=== PATIENT | female | born 1985 | race Caucasian/White ===

== ENCOUNTER → 2020-03-02 15:44 | Outpatient (CLI) | payer BC, SELFPAY ==
--- NOTE | ~2020-03-02 | MM_ITS ---
EXAMINATION: MM screening gregorio BI w brandon HISTORY: Screening TECHNIQUE: Craniocaudal and mediolateral oblique 3-D tomosynthesis images were obtained and synthetic 2-D images were generated. CAD analysis was submitted and interpreted. COMPARISON: No prior mammogram is available for comparison at this institution. BREAST PARENCHYMAL COMPOSITION: The breasts are heterogeneously dense, which may obscure small masses . FINDINGS: There are focal asymmetries in the upper outer quadrant of the right breast. The left breas t is stable without evidence for malignancy. IMPRESSION: 1. Focal asymmetry upper outer quadrant of the right breast 2. Additional mammographic views and possible breast ultrasound are recommended. BI-RADS Category 0: Incomplete: Needs additional imaging evaluation. Reviewed, dictated and finalized at location A. IMPRESSION: 1. Focal asymmetry upper outer quadrant of the right breast 2. Additional mammographic views and possible breast ultrasound are recommended . BI-RADS Category 0: Incomplete: Needs additional imaging evaluation.
== END ==
PROVIDERS: PCP Family Medicine; Visit Provider Family Medicine
DX: Z12.31 Encounter for screening mammogram for malignant neoplasm of breast (principal)
CPT/HCPCS: 77063; 77067

== ENCOUNTER → 2020-03-18 09:20 | Outpatient (CLI) | payer BC, SELFPAY ==
--- NOTE | ~2020-03-18 | MMUS_ITS ---
EXAMINATION: MM diagnostic mammo unilat RT, US breast RT limited HISTORY: Right breast asymmetry on baseline screening mammogram TECHNIQUE: Additional 3-D tomosynthesis images of the right breast were performed and synthetic 2-D i mages were generated. CAD analysis was submitted and interpreted. High resolution limited right breas t ultrasound was performed. COMPARISON: 03/02/2020 FINDINGS: MAMMOGRAPHIC FINDINGS: An asymmetry in the upper outer quadrant of the middle third of the breast persists on some spot comp ression views and not on others. No definite architectural distortion or suspicious calcification are identified. ULTRASOUND: There is a 1.2 x 0.5 cm complex cystic and solid, parallel, circumscribed mass at the 10:00 location 5 cm from the nipple with no posterior features or internal vascularity, likely reflecting a complica christie cyst. A 6 mm x 2 mm oval, circumscribed, parallel, hypoechoic mass with no posterior features or internal vascularity is present at the 9:00 location 4.5 cm from the nipple. IMPRESSION: 1. Probably benign right breast findings. 2. Recommend 6 month follow-up right diagnostic mammogram and ultrasound. BI-RADS category 3, probably benign findings. Reviewed, dictated and finalized at location A. IMPRESSION: 1. Probably benign right breast findings. 2. Recommend 6 month follow-up right diagnostic mammogram and ultrasound. BI-RADS category 3, probably benign findings.
== END ==
PROVIDERS: Visit Provider Family Medicine
DX: R92.8 Other abnormal and inconclusive findings on diagnostic imaging of breast (principal)
CPT/HCPCS: 76642; 77065

== ENCOUNTER → 2020-10-26 14:29 | Outpatient (CLI) | payer BC, SELFPAY ==
--- NOTE | ~2020-10-26 | MMUS_ITS ---
EXAMINATION: MM diagnostic gregorio RT w brandon, US breast RT complete HISTORY: 6 month follow up TECHNIQUE: Full field and spot ML, MLO, CC 3-D tomosynthesis images of right breast were performed an d synthetic 2-D images were generated. CAD analysis was submitted and interpreted. High resolution co mplete right breast ultrasound was performed. COMPARISON: 03/10/2020 diagnostic right mammogram and limited right breast ultrasound 03/02/2020 bilateral digital screening mammogram BREAST PARENCHYMAL COMPOSITION: The breasts are heterogeneously dense, which may obscure small masses . FINDINGS: MAMMOGRAPHIC FINDINGS: An approximately 11 mm mass is suggested in the inner mid right breast. Heterogeneously dense stroma may obscure additional masses. ULTRASOUND: 3:00 subareolar area: Approximately 6 x 10 mm circumscribed hypoechoic solid lesion with minimal inte rnal vascularity without suspicious shadowing. The sonographic features suggest benign fibroadenoma. Consider ultrasound-guided biopsy for definitive diagnosis. 8:00 4.5 cm from nipple: 3 x 8.4 mm sonolucency with through transmission and posterior enhancement, consistent with simple cyst. 10:00 5 cm from nipple: Stable septated 4.3 x 12 mm cyst with through transmission and posterior enha ncement 10:00 8 cm from nipple: 4 x 8 mm intramammary benign-appearing lymph node. IMPRESSION: 6 x 10 mm circumscribed hypoechoic solid lesion at 3:00 position; this may be a fibroadenoma. Conside r ultrasound-guided biopsy for definitive diagnosis, or alternatively six-month targeted ultrasound f ollow-up for 2 years to document stability BI-RADS Category 4A; consider biopsy. Alternatively, consider follow-up targeted ultrasound at 6 cynthia h intervals to document stability for 2 years Reviewed, dictated and finalized at location A. IMPRESSION: 6 x 10 mm circumscribed hypoechoic solid lesion at 3:00 position; this may be a fibroadenoma. Consider ultrasound-guided biopsy for definitive diagnosis, or a lternatively six-month targeted ultrasound follow-up for [address] ability BI-RADS Category 4A; consider biopsy. Alternatively, consider follow-up targete d ultrasound at 6 month intervals to document stability for 2 years
== END ==
PROVIDERS: PCP Family Medicine; Visit Provider Family Medicine
DX: R92.8 Other abnormal and inconclusive findings on diagnostic imaging of breast (principal)
CPT/HCPCS: 76641; 77061; 77065; G0279

== ENCOUNTER 2020-11-03 10:39 | Outpatient (CLI) | payer BC, SELFPAY ==
--- NOTE | ~2020-11-03 | MMUS_ITS ---
EXAMINATION: US breast biopsy RT w image, MM post biopsy invasive RT DATE: 11/03/2020 11:40 (accession [id number]), 11/03/2020 11:56 (accession [id number]) INDICATION: Indeterminate mass at the 3:00 location of the right breast Ultrasound-guided core biopsy is requested to evaluate for malignancy. TECHNIQUE AND FINDINGS: The risks and potential benefits of the procedure were discussed with the patient including bleeding and infection. A time out was performed. The skin of the right breast was prepared and draped in usua l sterile fashion. 1% lidocaine was used for superficial anesthesia. 1% lidocaine with epinephrine wa s used for deep anesthesia. A vacuum-assisted biopsy gun needle was advanced through to the outer edge of the region of interest from an inferior approach utilizing sonographic guidance. A total of three tissue core samples were o btained through the lesion. A tissue marker clip was then placed at the biopsy site. Hemostasis was a chieved. A sterile bandage was applied. The patient tolerated procedure well and there was no evidence of immediate complication. The patient was given verbal instructions to return to the Emergency Department in the event of severe breast pa in or rapid breast enlargement. A two view right breast mammogram was obtained to document tissue mar ker clip placement. IMPRESSION: 1. Successful ultrasound-guided vacuum-assisted biopsy of right breast mass with tissue marker placem ent. Reviewed, dictated and finalized at location A. IMPRESSION: 1. Successful ultrasound-guided vacuum-assisted biopsy of right breast mass wit h tissue marker placement.
== END 2020-11-03 10:40 | disposition home or self-care (01) ==
PROVIDERS: PCP Family Medicine; Visit Provider Family Medicine
DX: D24.1 Benign neoplasm of right breast (principal)
CPT/HCPCS: 19083; 88305; A4648

== ENCOUNTER → 2022-07-07 15:54 | Outpatient (CLI) | payer BC, SELFPAY ==
--- NOTE | ~2022-07-07 | MM_ITS ---
EXAMINATION: MM screening gregorio BI w brandon HISTORY: Screening mammogram TECHNIQUE: Craniocaudal and mediolateral oblique 3-D tomosynthesis images were obtained and synthetic 2-D images were generated. CAD analysis was submitted and interpreted. COMPARISON: 11/03/2020 right ultrasound breast biopsy 10/26/2020 diagnostic right mammogram and complete right breast ultrasound 03/10/2020 diagnostic right mammogram and limited right breast ultrasound 03/02/2020 bilateral screening mammogram BREAST PARENCHYMAL COMPOSITION: The breasts are heterogeneously dense, which may obscure small masses . FINDINGS: Right-sided biopsy marker; history of prior benign right breast biopsy. There is no evidenc e of suspicious mass, calcification, or architectural distortion to suggest malignancy in either nat st. There has been no suspicious interval change. IMPRESSION: 1. No mammographic evidence of malignancy. 2. Recommend routine screening mammography in one year. BI-RADS Category 1: Negative Reviewed, dictated and finalized at location A. 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
== END ==
PROVIDERS: PCP Family Medicine; Visit Provider Family Medicine
DX: Z12.31 Encounter for screening mammogram for malignant neoplasm of breast (principal)
CPT/HCPCS: 77063; 77067

== ENCOUNTER 2022-11-02 19:43 | Emergency (ER) | payer BC, SELFPAY ==
--- NOTE | ~2022-11-02 | US_ITS ---
EXAMINATION: US transvaginal DATE: 11/02/2022 22:58 INDICATION: Left pelvic pain. TECHNIQUE: Multiple transvaginal sonographic images of the pelvis were obtained. COMPARISON: None. FINDINGS: The uterus measures 9.1 x 6.0 x 6.7 cm. There is no free fluid in the pelvis. The endometrial complex measures 5 mm in thickness. There is a nabothian cysts in the cervix. There is a 5.0 cm intramural f ibroid. The right ovary measures 3.0 x 1.4 x 2.4 cm. The left ovary measures 2.1 x 3.2 x 1.9 cm. Ther e is normal vascular flow in the ovaries. IMPRESSION: 1. Uterine fibroid. 2. Normal ovaries. Reviewed, dictated and finalized at location A.
[2022-11-02 19:49] VITALS: BP 180/96; PULSE 103; RESP 20; TEMP 36.3; O2SAT 100
[2022-11-02 22:21] LABS: Basophils Percent Auto 0.5 % (0.2-1.2); Eosinophils Percent Auto 0.2 % (0-4.4); Hematocrit 40.6 % (37.0-47.0); Hemoglobin 13.7 g/dL (12.0-15.0); Immature Granulocyte Absolute 0.02 K/mm3 (0.00-0.031); Immature Granulocyte Percent A 0.2 % (0-0.5); Lymphocytes Absolute Auto 2.35 K/mm3 (0.9-3.2); Lymphocytes Percent Auto 27.4 % (18.3-44.2); Mean Corpuscular HGB Conc 33.7 g/dl (32-36); Mean Corpuscular Hemoglobin 29.6 pg (26-34); Mean Corpuscular Volume 87.7 fl (80-100); Mean Platelet Volume 9.2 fl (7.4-10.4); Monocytes Absolute Auto 0.5 K/mm3 (0.1-0.6); Monocytes Percent Auto 5.9 % (2.6-8.5); Neutrophils Absolute Auto 5.6 K/mm3 (1.3-6.7); Neutrophils Percent Auto 65.8 % (45.5-73.1); Platelet Count Result 352 k/mm3 (150-375); Red Blood Count 4.63 M/mm3 (4.2-5.4); Red Cell Distribution Width 13.2 % (11.5-14.5); White Blood Count 8.6 K/mm3 (4.5-10.0)
--- NOTE | 2022-11-02 22:21 | ED.ABDPAIN ---
HPI - Abdominal Pain General Chief Complaint: Abdominal Pain Stated Complaint: left pelvic pain x 1 hour - on IVF therapy Time Seen by Provider: 11/02/22 21:46 History of Present Illness HPI narrative: Patient is a G0 37-year-old female here for evaluation of left sided pelvic pain x1 day. She states the pain is intermittent in nature, coming in waves, but when it is there it is severe. She has not had any medicine for her pain. Patient is currently undergoing IVF and has received 3 out of 6 treatments. She denies any nausea, vomiting, diarrhea, constipation, vaginal discharge, vaginal bleeding. Related Data Allergies Allergy/AdvReac Type Severity Reaction Status Date / Time levofloxacin [From Levaquin] Allergy Other Verified 11/02/22 19:52 Review of Systems Review of Systems: Gen: Denies fevers or chills Eyes: Denies eye pain or visual change ENT: Denies congestion Respiratory: Denies shortness of breath or cough CV: Denies chest pain or palpitations GI: Reports abdominal pain : denies burning, urgency, frequency or hematuria Musculoskeletal: Denies back pain or muscle pain Neuro: Denies numbness, tingling, weakness or focal weakness Skin: Denies rash Except as documented, all other systems reviewed and negative Exam Narrative: APPEARANCE: Well appearing, no pain in distress, well-nourished. Head: Normocephalic and atraumatic. EYES: PERRLA/EOMI, conjunctivae clear NOSE: No nasal drainage EARS: External ear normal in appearance THROAT: Oropharynx is clear. Mucous membranes are moist. NECK: Supple. No adenopathy, no masses. RESPIRATORY: Airway patent, respirations nonlabored. Clear to auscultation bilaterally, no rales, rhonchi, wheezing. CARDIOVASCULAR: Regular rate and rhythm without murmurs, rubs, or gallops. ABDOMINAL: Normoactive bowel sounds. Soft, nontender, nondistended. No rebound tenderness or guarding. MUSCULOSKELETAL: Extremities are warm and well-perfused. Moves all extremities well. No edema. NEURO: Normal speech. No focal neurologic deficits. SKIN: Skin is warm and dry. No rashes. PSYCHIATRIC: Normal affect/mood.. Course Vital Signs Vital signs: Vital Signs Temperature 97.3 F L 11/02/22 19:49 Pulse Rate 103 H 11/02/22 19:49 Respiratory Rate 20 11/02/22 19:49 Blood Pressure 180/96 H 11/02/22 19:49 Pulse Oximetry 100 11/02/22 19:49 Oxygen Delivery Room Air 11/02/22 19:49 Temperature 97.8 F 11/03/22 00:51 Pulse Rate 80 11/03/22 00:51 Respiratory Rate 15 11/03/22 00:51 Blood Pressure 137/99 H 11/03/22 00:51 Pulse Oximetry 100 11/03/22 00:51 Oxygen Delivery Room Air 11/02/22 19:49 MDM - Abdominal Pain MDM Narrative Medical decision making narrative: 37-year-old female here for evaluation of intermittent left pelvic pain x1 day. Patient is nontoxic in appearance and has normal vital signs, no abdominal tenderness on exam. Pelvic ultrasound reveals leiomyomatous uterus but no evidence of ovarian torsion. She was aware of the above findings. Her basic labs and urinalysis unremarkable. Patient declines pain meds in the ED. 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 We discussed return precautions and she voiced understanding. Lab Data 11/02/22 22:15 11/02/22 22:15 Labs: Lab Results 11/02/22 11/02/22 Range/Units 22:15 22:37 WBC 8.6 (4.5-10.0) K/mm3 RBC 4.63 (4.2-5.4) M/mm3 Hgb 13.7 (12.0-15.0) g/dL Hct 40.6 (37.0-47.0) % MCV 87.7 (80-100) fl MCH 29.6 (26-34) pg MCHC 33.7 (32-36) g/dl RDW 13.2 (11.5-14.5) % Plt Count 352 (150-375) k/mm3 MPV 9.2 (7.4-10.4) fl Immature Gran % (Auto) 0.2 (0-0.5) % Neut % (Auto) 65.8 (45.5-73.1) % Lymph % (Auto) 27.4 (18.3-44.2) % [place] % (Auto) 5.9 (2.6-8.5) % Eos % (Auto) 0.2 (0-4.4) % Baso % (Auto) 0.5 (0.2-1.2) % Lymph # (Auto) 2.35 (0.9-3.2) K/mm3 [place] # (Auto) 0.5 (0.1-0.6) K/mm3 Eos # (Auto) 0
[2022-11-02 22:32] LABS: Alanine Aminotransferase 22 U/L (6-35); Alkaline Phosphatase 61 U/L (38-126); Anion Gap 4 mmol/L (8-16); Aspartate Amino Transferase 23 U/L (14-36); Bilirubin,Total 0.2 mg/dL (0.2-1.3); Blood Urea Nitrogen 9 mg/dL (7-17); Carbon Dioxide 31 mmol/L (22-30); Chloride 105 mmol/L (98-107); Estimated CRCL calculation 74 ml/min; Estimated Glomerular Filt Rate > 60; Glucose 89 mg/dL (65-110); Lipase 32 U/L (23-300); Potassium 4.1 mmol/L (3.4-5.0); Sodium 140 mmol/L (137-145)
[2022-11-02 22:45] LABS: Appearance Urine Clear (Clear); Bilirubin Urine Negative (Negative); Blood Urine Negative (Negative); Color Urine Yellow (Yellow); Glucose Urine UA Negative (Negative); Ketones Urine Negative (Negative); Leukocyte Esterase Ur Negative LEU/UL (Negative); Nitrate Urine Negative (Negative); Protein Urine Negative (Negative); Specific Grav Ur 1.007 (1.001-1.035); Urobilinogen Urine 0.2 mg/dL (<2.0)
[2022-11-02 22:48] LABS: Beta HCG Quantitative < 2.39 mIU/ML
[2022-11-02 22:53] LABS: Add Urine Microscopic? NO
[2022-11-02 23:12] VITALS: BP 136/99; PULSE 79; RESP 14; TEMP 36.6; O2SAT 99
[2022-11-03 00:51] VITALS: BP 137/99; PULSE 80; RESP 15; TEMP 36.6; O2SAT 100
== END 2022-11-03 00:52 | disposition home or self-care (01) ==
PROVIDERS: Emergency Provider Physician Assistant; PCP Family Medicine
DX: R10.2 Pelvic and perineal pain (principal); D25.9 Leiomyoma of uterus, unspecified
CPT/HCPCS: 36415; 76830; 80053; 81003; 83690; 84702; 85025; 99284

== ENCOUNTER 2023-10-05 10:29 | Outpatient (CLI) | payer OTHER, SELFPAY ==
--- NOTE | ~2023-10-05 | MM_ITS ---
EXAMINATION: MM screening gregorio BI w brandon HISTORY: Screening mammogram TECHNIQUE: Craniocaudal and mediolateral oblique 3-D tomosynthesis images were obtained and synthetic 2-D images were generated. CAD analysis was submitted and interpreted. COMPARISON: April 06, 2023 bilateral screening mammogram 11/03/2020 right ultrasound-guided breast biopsy; fibroadenoma diagnosis, 3:00 10/26/2020 diagnostic right mammogram and incomplete right breast ultrasound examination 03/02/2020 bilateral screening mammogram BREAST PARENCHYMAL COMPOSITION: The breasts are heterogeneously dense, which may obscure small masses . FINDINGS: There is a biopsy marker on the right and a circumscribed approximately 4.4 x 9.4 mm circum scribed mass; history of prior benign right breast biopsy (fibroadenoma). There is no evidence of petros picious mass, calcification, or architectural distortion to suggest malignancy in either breast. Ther e has been no suspicious interval change. IMPRESSION: 1. No mammographic evidence of malignancy. 2. Recommend routine screening mammography in one year. BI-RADS Category 2: Benign finding(s). Reviewed, dictated and finalized at location B.
== END 2023-10-05 10:30 | disposition home or self-care (01) ==
LOC: ANHIMG 10:31
PROVIDERS: PCP Family Medicine; Visit Provider Nurse Practitioner Family
DX: Z12.31 Encounter for screening mammogram for malignant neoplasm of breast (principal)
CPT/HCPCS: 77063; 77067

== ENCOUNTER 2023-10-17 13:12 | Emergency (ER) | payer OTHER, SELFPAY ==
--- NOTE | ~2023-10-17 | XR_ITS ---
EXAMINATION: XR chest 2V DATE: 10/17/2023 13:59 INDICATION: Chest pain. Shortness of breath. TECHNIQUE: Frontal and lateral views of the chest were obtained. COMPARISON: None. FINDINGS: There is no pneumonia, pleural effusion, or pneumothorax. The heart size is normal. IMPRESSION: 1. No acute cardiopulmonary disease. Reviewed, dictated and finalized at location A.
--- NOTE | 2023-10-17 13:13 | ECG_ITS ---
SEE SCANNED COPY FOR CONFIRMED REPORT MTDD
[2023-10-17 13:19] VITALS: BP 137/91; PULSE 100; RESP 20; TEMP 36.1; O2SAT 98
[2023-10-17 13:36] VITALS: O2SAT 99
[2023-10-17 13:39] VITALS: BP 139/96; PULSE 90; PULSE 91; RESP 10; O2SAT 100
[2023-10-17] MEDS: ASPIRIN 81 MG CHEWABLE TABLET 324 MG PO (13:43)
--- NOTE | 2023-10-17 13:44 | PC.NURSE ---
Pt states 3 weeks ago she had laparoscopic surgery for her endometriosis and stated they removed 5 fibroids from her uterus
[2023-10-17 13:45] LABS: Basophils Percent Auto 0.6 % (0.2-1.2); Eosinophils Absolute Auto 0.2 K/mm3 (0-0.3); Eosinophils Percent Auto 2.7 % (0-4.4); Hematocrit 44.5 % (37.0-47.0); Hemoglobin 14.9 g/dL (12.0-15.0); Immature Granulocyte Absolute 0.02 K/mm3 (0.00-0.031); Immature Granulocyte Percent A 0.3 % (0-0.5); Lymphocytes Absolute Auto 2.21 K/mm3 (0.9-3.2); Lymphocytes Percent Auto 32.7 % (18.3-44.2); Mean Corpuscular HGB Conc 33.5 g/dl (32-36); Mean Corpuscular Hemoglobin 29.3 pg (26-34); Mean Corpuscular Volume 87.4 fl (80-100); Mean Platelet Volume 9.1 fl (7.4-10.4); Monocytes Absolute Auto 0.4 K/mm3 (0.1-0.6); Monocytes Percent Auto 6.2 % (2.6-8.5); Neutrophils Absolute Auto 3.9 K/mm3 (1.3-6.7); Neutrophils Percent Auto 57.5 % (45.5-73.1); Platelet Count Result 408 k/mm3 (150-375); Red Blood Count 5.09 M/mm3 (4.2-5.4); Red Cell Distribution Width 12.9 % (11.5-14.5); White Blood Count 6.8 K/mm3 (4.5-10.0)
[2023-10-17 13:58] LABS: Alanine Aminotransferase 18 U/L (6-35); Albumin Level 4.6 g/dL (3.5-5.1); Alkaline Phosphatase 94 U/L (38-126); Anion Gap 5 mmol/L (4-12); Aspartate Amino Transferase 22 U/L (14-36); Bilirubin,Total 0.8 mg/dL (0.2-1.3); Blood Urea Nitrogen 11 mg/dL (7-17); Calcium 9.2 mg/dL (8.4-10.2); Carbon Dioxide 26 mmol/L (22-30); Chloride 106 mmol/L (98-107); Estimated CRCL calculation 70 ml/min; Estimated Glomerular Filt Rate > 60; Glucose 94 mg/dL (65-110); Lipase 46 U/L (23-300); Sodium 137 mmol/L (137-145)
[2023-10-17 14:00] LABS: INR 0.9; Prothrombin Time 13.1 Seconds (11.1-14.7)
[2023-10-17 14:01] LABS: Partial Thromboplastin Time 29.1 Seconds (22.3-36.8)
[2023-10-17 14:09] LABS: Troponin I < 0.012 ng/mL (0.000-0.034)
--- NOTE | 2023-10-17 14:11 | ED.CHESTPAIN ---
HPI - Chest Pain General Chief Complaint: Chest Pain Stated Complaint: chest pain Time Seen by Provider: 10/17/23 13:53 Source: patient Mode of arrival: ambulatory Limitations: no limitations History of Present Illness HPI narrative: This is a 38-year-old female who presents to the ED with chief complaint of chest pain beginning in the shower this morning. Reports it is in the left side of the chest radiating to the left shoulder and left neck. Reports she has chronic shoulder pain and shoulder laxity so deals with pain in this area a lot. The pain is worse with palpation and certain movements. She reports that it was hurting a little bit more towards the neck which was worrisome to her. States that she just wants to make sure it is not her heart. Did not take any medications prior to arrival. Denies nausea, vomiting, syncope, shortness of breath, leg swelling, palpitations, numbness, weakness, history of blood clot or recent hospitalization Related Data Allergies Allergy/AdvReac Type Severity Reaction Status Date / Time levofloxacin [From Levaquin] Allergy Other Verified 10/17/23 13:40 Review of Systems Review of Systems: All systems as dictated in HPI Exam Narrative: GENERAL: Well-appearing, well-nourished, and in no acute distress. HEAD: Normocephalic, atraumatic. EYES: PERRLA and EOMI. ENT: Nares clear, no rhinorrhea or epistaxis. Mucous membranes moist. Oropharynx without tonsillar hypertrophy exudate or other lesions. NECK: Supple. No adenopathy or masses. CHEST: No respiratory distress. Clear to auscultation. No wheezes rales or rhonchi. Mild tenderness to the left chest wall. HEART: Regular rate and rhythm. No murmur heard. Normal peripheral pulses. ABDOMEN: Soft, nontender, nondistended, normal active bowel sounds. MSK: Normal range of motion. No edema. SKIN: Warm, dry, no rash. NEURO: Alert and oriented x3. No focal deficits. PSYCH: Normal mood and affect. Course Vital Signs Vital signs: Vital Signs Temperature 97 F L 10/17/23 13:19 Pulse Rate 100 10/17/23 13:19 Respiratory Rate 20 10/17/23 13:19 Blood Pressure 137/91 H 10/17/23 13:19 Pulse Oximetry 98 10/17/23 13:19 Oxygen Delivery Room Air 10/17/23 13:19 Temperature 97 F L 10/17/23 13:19 Pulse Rate 90 10/17/23 14:40 Respiratory Rate 20 10/17/23 14:40 Blood Pressure 128/81 10/17/23 14:40 Pulse Oximetry 100 10/17/23 14:40 Oxygen Delivery Room Air 10/17/23 13:36 MDM - Chest Pain MDM Narrative Medical decision making narrative: This is a 38-year-old female who presents to the ED with chief complaint of left chest and left shoulder pain beginning in the shower this morning. Vitals are normal. EKG shows normal sinus rhythm. Exam shows reproducible musculoskeletal tenderness and pain with range of motion of the left chest wall and shoulder. Lab work is grossly unremarkable. Troponin is normal. Heart score 0. PERC rule negative for PE. Chest x-ray is normal. Symptoms and presentation most likely consistent with musculoskeletal pain. Pt will be discharged in stable condition. Return precautions given and supportive measures discussed. Pt is understanding and agreeable with plan for discharge and follow-up with PCP. PERC Rule for Pulmonary Embolism from [email or web address] on 10/17/2023 All calculations should be rechecked by clinician prior to use RESULT SUMMARY: 0 criteria No need for further workup, as <2% chance of PE. If no criteria are positive and clinician?s pre-test probability is <15%, PERC Rule criteria are satisfied. INPUTS: Age >=0 ?> 0 = No HR >=00 ?> 0 = No O? sat on room air ?> 0 = No Unilateral leg swelling ?> 0 = No Hemoptysis ?> 0 = No Recent surgery or trauma ?> 0 = No Prior PE or DVT ?> 0 = No Hormone use ?> 0 = No Lab Data 10/17/23 13:35 10/17/23 13:35 Labs: Lab Results 10/17/23 Range/Units 13:35 WBC 6.8 (4.5-10.0) K/mm3
[2023-10-17 14:40] VITALS: BP 128/81; PULSE 90; RESP 20; O2SAT 100
== END 2023-10-17 14:41 | disposition home or self-care (01) ==
PROVIDERS: Emergency Medicine; Emergency Provider Physician Assistant; PCP Family Medicine
DX: R07.89 Other chest pain (principal); R94.31 Abnormal electrocardiogram [ECG] [EKG]
CPT/HCPCS: 36415; 71046; 80053; 83690; 84484; 85025; 85610; 85730; 93005; 99284; A9270

== ENCOUNTER 2024-08-08 12:46 | Outpatient (CLI) | payer OTHER, SELFPAY ==
--- NOTE | ~2024-08-08 | US_ITS ---
EXAMINATION: US thyroid DATE: 08/08/2024 13:21 INDICATION: Hypothyroidism TECHNIQUE: Multiple ultrasound images of the thyroid were obtained. COMPARISON: None. FINDINGS: The right thyroid lobe measures 5.9 x 2.2 x 1.8 cm. The left thyroid lobe measures 5.4 x 1.7 x 1.9 c m. There are multiple nodules throughout the thyroid. The largest include a 1.9 cm solid very hypoec hoic wider than tall nodule with smooth margins and without echogenic foci the thyroid isthmus (TI-RA DS 4, moderately suspicious , FNA if >=1.5 cm, annual followup is >=1 cm); 1.48 cm TI-RADS 4 right th yroid nodule with identical imaging features, a second 1.46 cm TI-RADS 4 right thyroid nodule identic al which appears heterogeneously hypoechoic but with otherwise minimal imaging features and a couple 9 mm and 8 mm TI-RADS 4 nodules in the left thyroid lobe with smooth to ill-defined margins but with otherwise similar imaging features. IMPRESSION: 1. Multiple TI-RADS 4 nodules in both the left right thyroid lobes at the thyroid isthmus. Would paulette mmend ultrasound-guided biopsy of the largest 1.8 cm nodule at the thyroid isthmus with continued matty ual ultrasound follow-up of the remaining <1.5 cm nodules. Reviewed, dictated and finalized at location A. IMPRESSION: 1. Multiple TI-RADS 4 nodules in both the left right thyroid lobes at the thyro id isthmus. Would recommend ultrasound-guided biopsy of the largest 1.8 cm nodu le at the thyroid isthmus with continued annual ultrasound follow-up of the rem aining <1.5 cm nodules.
== END 2024-08-08 12:47 | disposition home or self-care (01) ==
LOC: MICIMG 12:48
PROVIDERS: PCP Family Medicine; Visit Provider Nurse Practitioner Family
DX: E04.2 Nontoxic multinodular goiter (principal); E03.9 Hypothyroidism, unspecified
CPT/HCPCS: 76536

== ENCOUNTER 2024-09-13 12:32 | Outpatient (CLI) | payer OTHER, SELFPAY ==
--- NOTE | ~2024-09-13 | US_ITS ---
EXAMINATION: US FNA w image guidance DATE: 09/13/2024 13:24 INDICATION: Nontoxic single thyroid nodule TECHNIQUE: A time-out was performed to verify the patient's name, date of , and procedure to be performed . The procedure and its benefits and risks were discussed with the patient. Risks specifically discus sed included bleeding and infection. The patient understood the risks and agreed to proceed. The neck was prepped and draped in the usual sterile manner. 7 mL 1% lidocaine was used for local anesthesia . 5 passes were made with a 25G needle into the lesion. Appropriate needle location was documented with continuous sonographic guidance. A sterile bandage was applied. There were no immediate compli cations. FINDINGS: Grayscale ultrasound images demonstrate biopsy needles advanced into a 1.7 cm hypoechoic nodule at th e thyroid isthmus. IMPRESSION: 1. Successful ultrasound-guided fine needle aspiration of a 1.7 cm hypoechoic nodule at the thyroid isthmus. Reviewed, dictated and finalized at location A.
--- OUTSIDE RECORDS SUMMARY | 2024-09-13 12:38 | XMS_ITS | Encounter Summary ---
[facility] Address 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
--- OUTSIDE RECORDS SUMMARY | 2024-09-13 12:38 | XMS_ITS | Clinical Summary ---
Author Organization [facility] Address [address] 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 This disclosure is being madepursuant to the Care Everywhere program and may not contain all information available regarding this patient. Last updated 18.[facility] [employer] Social History Tobacco Use Types Packs/Day Years Used Date Smoking Tobacco: Never Assessed Comments Unknown Sex and Gender Information Value Date Recorded Sex Assigned at Not on file Legal Sex Female 9:53 AM CDT Gender Identity Not on file Sexual Orientation Not on file Plan of Treatment Health Maintenance Due Date Last Done Comments LIPID TESTING 1983 MAMMOGRAM 1983 PAP SMEAR 1983 HIV SCREENING 1998 HEPATITIS C SCREENING 01/11/2001 DTAP/TDAP/TD VACCINES (1 - Tdap) 2002 HEPATITIS B VACCINE (1 of 3 - 19+ 3-dose series) 2002 COVID-19 VACCINE ( - season) 2024 10/27/2020, 10/06/2020 DEPRESSION SCREENING 05/22/2024 INFLUENZA VACCINE (Season Ended) 2025 04/05/2022, 04/21/2021, 03/13/2020, Additional history exists ZOSTER VACCINE (1 of 2) 2033 HIB VACCINE Aged Out No longer eligi ble based on patient's age to complete this topic HPV VACCINE Aged Out No longer eligi ble based on patient's age to complete this topic MENINGOCOCCAL (Group B) VACCINE SHARED DECISION-MAKING Aged Out No longer eligible based on patient's age to complete this topic MENINGOCOCCAL GROUPS A/C/Y/W VACCINE Aged Out No longer eligible based on patient's age to complete this topic PNEUMOCOCCAL VACCINE Aged Out No long er eligible based on patient's age to complete this topic Insurance
--- OUTSIDE RECORDS SUMMARY | 2024-09-13 12:38 | XMS_ITS | Data Portability ---
Author Organization [facility] [employer] , [facility] Address [address] [place] [address] Assessment No assessment recorded. Plan of Treatment Reminders Order Date Submit Date Provider Last Modified By Organization Details Last Modified Time Details Appointments None recorded. Lab HPV E6+E7 mRNA, qualitative PCR, cervix 2023 [facility] Carlo, [address] [place], [address], 4 16:06:09 pap, LB 2023 024 [facility], [address] [facility], [place], [address], 10:54:15 Referral None recorded. Procedures None recorded. Surgeries None recorded. Imaging MAMMO, screening, digital, bilateral 2023 024 [email or web address] Not available 16:03:13 Medication Orders None recorded. Patient TargetsNo targets recorded. Patient Instructions Encounter Date Encounter Id Patient Instructions Last Modified By Organization Details Last Modified Time 02/01/2023 [id number] Patient Health Questionnaire-9* [email or web address] Not available 02/06/2023 16:27:27 A healthy lifestyle: care instructions Not available 02/01/2023 17:51:21 substance use disorder: care instructions Not available 02/01/2023 17:51:21 tobacco cessation Not availab le 02/01/2023 17:51:21 Following the [employer] Food Guide: Care Instructions Not available 02/01/2023 17:51:21 exercise program : getting started Not available 02/01/2023 17:51:21 04/08/2024 [id number] body mass index: care instructions Not available 04/08/2024 12:15:15 mammogram: about this test Not available 04/08/2024 12:15:15 Reason for Referral None Reported. Results Created Date Observation Date Name Description Value Unit Range Abnormal Flag Note LastModifiedBy Organization Detail LastModifiedTime 04/15/2004/15/2024 THINP REP TIS PAP clinical information: normal None given Not Available [address], [address], 04/15/2024 10:54:15 04/15/2004/15/2024 THINP REP TIS PAP LMP: normal NONE GIVEN Not Available [address], [address], 04/15/2024 10:54:15 04/15/2004/15/2024 THINP REP TIS PAP prev. Pap: normal NONE GIVEN Not Available [address], [address], 04/15/2024 10:54:15 04/15/2004/15/2024 THINP REP TIS PAP prev. BX: normal NONE GIVEN Not Available [address], [address], 04/15/2024 10:54:15 04/15/2004/15/2024 THINP REP TIS PAP source: normal None given Not Available [address], [address], 04/15/2024 10:54:15 04/15/2004/15/2024 THINP REP TIS PAP statement of adequacy: normal Satis facto ry for evalu ation . Endoc ervic al/tr ansfo rmati on zone compo nent prese nt. Age and/o r menst rual statu s not provi ded Not Available [address] [place], [address], 04/15/2024 10:54:15 04/15/20 24 04/15/2024 THINP REP TIS PAP interpretati on/result: Cytol ogy Resul ts: Negat marianela for intra epith elial lesio n or malig roselia . React marianela cellu lar hunt es assoc iated with repai r Not Available [address] [address] [place], [address], 04/15/2024 10:54:15 04/15/20 24 04/15/2024 THINP REP TIS PAP comment: normal This Pap test has been evalu ated with compu ter jeffery christie techn ology . HYPER KERAT OSIS PRESE NT Not Available [address] [address] [place], [address], 04/15/2024 10:54:15 04/15/20 24 04/15/2024 THINP REP TIS PAP cytotechnolo gist: normal ABC, CT( CP) CT scree lucia locat ion: [address] [address] [place] [address] Not Available [address] [address] [place], [address], 04/15/2024 10:54:15 04/15/20 24 04/15/2024 THINP REP TIS PAP pathologist: normal Silvana trevino M.D., Board Certi fied in Anato jg Patho logy and Cytop athol ogy. Phone : [phone] (elec troni c signa ture) Not Available [address] [address] [place], [address], 04/15/2024 10:54:15 04/15/20 24 04/15/2024 THINP REP TIS PAP comment EXPLA NATOR Y NOTE: The Pap is a scree lucia test for cervi juany cance r. It is not a diagn ostic test and is subje ct to false negat marianela and false posit marianela resul ts. It is most relia ble when a satis facto ry sampl e, regul miguel obtai bisi, is submi tted with relev ant clini juany findi ngs and histo ry, and when the Pap resul t is evalu ated along with histo kehinde and curre nt clini juany infor matio n. NO COLLE CTION DATE RECEI DENISSE. WE HAVE USED THE DATE THE SPECI MEN WAS RECEI DENISSE BY THIS LABOR ATORY THE COLLE CTION DATE. IF THIS IS INCOR RECT, PLEAS E CONTA CT CLIEN T SERVI BREA. PHONE NUMBE R: [phone] Not Available [employer] [facility] [address] [place], [address], 04/15/2024 10:54:15 04/08/20 24 04/10/2024 HPV HIGH RISK HPV high risk Negati ve negati ve normal The HPV High Risk assay is inten ded for use as co-te sting with cytol ogy and not as a subst itute for regul ar cervi juany cytol ogy scree lucia. This assay is not inten ded for use as a scree lucia devic e for women under age 30 with silvana l cervi juany cytol ogy. Not Available [address], [address], 04/10/2024 16:06:09 Result Notes None recorded. Procedures Surgical History Date Name Laterality Status Provider Name and Address Organization Details Recorded Time 09/04/19 24 laparoscopy completed Bryon Leblanc MD [address] [place] [address], [phone], [facility] [employer] [facility] 04/08/2024 12:07:12 08/24/19 24 Most Recent Mammogram completed Srinivas Benson [place] - [facility] 03/26/2024 11:10:28 05/31/19 22 Date of Last Pap Smear completed REMY PRADO DO [address] [place] [address], [phone], [facility] [employer] IV 02/01/2023 17:44:46 Sterilization completed Bryon Leblanc MD [address] [facility], [place], [address], [facility] 04/08/2024 12:05:30 Imaging Results None recorded. Procedure Notes None recorded. Medical Equipment None Reported. Allergies Allergen ID Allergen Name Allergen Category Reaction Reaction Severity Criticality Documentation Date Start Date Code Code System Note Provider Name and Address Organization Details Recorded Time 395685 cigarette smoke environme nt Not available Not available Not available 04/08/2024 46728 UNK Not Available Not Available Not Available 566322 marijuana (cannabis ) medicatio n Not available Not available Not available 04/08/2024 35828 UNK Not Available Not Available Not Available 501326 perfume environme nt Not available Not available Not available 04/08/2024 47469 UNK Not Available Not Available Not Available 851180 Levaquin medicatio n Not available Not available Not available 04/08/2024 94222 2 RxNorm Not Available Not Available Not Available Medications Name Sig Start Date Stop Date Status Note LastModified by Organization Details LastModified Time fed-ex mon- AM TO PT HM SIG MX DECLINED COUNSELIN G 04/08 completed Not Available Not Available Not Available mdr- future family APPROVED FOR $679.98 04/08 completed Not Available Not Available Not Available fed-ex standard overnight -MON PT HM SIG REQ AH DECLINED COUNSELIN G 04/08 completed Not Available Not Available Not Available sharp container USE TO DISPOSE OF NEEDLES 04/08 completed Not Available Not Available Not Available medroxyprog esterone 10 mg tablet TAKE 1 TABLET BY MOUTH ONCE DAILY DIRECTED 04/08 completed Not Available Not Available Not Available azithromyci n 250 mg tablet TAKE 2 TABLETS BY MOUTH ON DAY 1, AND THEN TAKE 1 TABLET BY MOUTH ONCE A DAY ON DAY 2 THROUGH DAY 5 04/08 completed Not Available Not Available Not Available Pregnyl 10,000 unit intramuscul ar solution 04/08 completed Not Available Not Available Not Available sulfamethox azole 800 mg-trimetho prim 160 mg tablet TAKE 1 TABLET BY MOUTH TWICE DAILY FOR 10 DAYS 04/08 completed Not Available Not Available Not Available levothyroxi ne 75 mcg tablet TAKE 1 TABLET BY MOUTH ONCE DAILY DIRECTED 04/08 completed Not Available Not Available Not Available progesteron e 50 mg/mL intramuscul ar oil 04/08 completed Not Available Not Available Not Available dexamethaso ne 1 mg tablet TAKE 1 TABLET BY MOUTH ONCE DAILY DIRECTED 04/08 completed Not Available Not Available Not Available Sure Comfort Insulin Syringe 1/2 mL 28 gauge x 1/2 USE DIRECTED [OMNITROP E MEDICATIO N] 04/08 completed Not Available Not Available Not Available levothyroxi ne 50 mcg tablet TAKE 1 TABLET BY MOUTH ONCE DAILY 04/08 completed Not Available Not Available Not Available misoprostol 200 mcg tablet INSERT 1 TABLET VAGINALLY ONCE AT BEDTIME THE NIGHT BEFORE HYSTEROSC OPY 04/08 completed Not Available Not Available Not Available estradiol 2 mg tablet TAKE 1 TABLET BY MOUTH THREE TIMES DAILY DIRECTED 04/08 completed Not Available Not Available Not Available mupirocin 2 % topical ointment APPLY 1 APPLICATI ON TOPICALLY 2 TIMES PER DAY FOR 10 DAYS TO AFFECTED AREA 04/08 completed Not Available Not Available Not Available testosteron e cypionate 200 mg/mL intramuscul ar oil INJECT 0.1 ML INTRAMUSC ULARLY ONCE A WEEK 04/08 completed Not Available Not Available Not Available letrozole 2.5 mg tablet TAKE 1 TABLET BY MOUTH ONCE DAILY DIRECTED 04/08 completed Not Available Not Available Not Available albuterol sulfate HFA 90 mcg/actuati on aerosol inhaler INHALE 1 TO 2 PUFFS BY MOUTH EVERY 4 HOURS NEEDED FOR WHEEZING 04/08 completed Not Available Not Available Not Available dextroamphe tamine-amph etamine ER 30 mg 24hr capsule,ext end release TAKE 1 CAPSULE BY MOUTH ONCE DAILY 04/08 completed Not Available Not Available Not Available BD Luer-Jermaine Syringe 3 mL 22 x 1 1/2 USE DIRECTED [OMNITROP E MEDICATIO N] 04/08 completed Not Available Not Available Not Available leuprolide 1 mg/0.2 mL subcutaneou s kit 04/08 completed Not Available Not Available Not Available oxycodone 5 mg tablet 04/08 completed Not Available Not Available Not Available Sure Comfort Insulin Syringe 1 mL 29 gauge x 1/2 USE DIRECTED [OMNITROP E MEDICATIO N] 04/08 completed Not Available Not Available Not Available bupropion HCl SR 200 mg tablet,12 hr sustained-r elease TAKE 1 TABLET BY MOUTH TWICE DAILY 04/08 completed Not Available Not Available Not Available ganirelix 250 mcg/0.5 mL subcutaneou s syringe 04/08 completed Not Available Not Available Not Available Menopur 75 unit subcutaneou s solution 04/08 completed Not Available Not Available Not Available Follistim AQ 900 unit/1.08 mL subcutaneou s cartridge 04/08 completed Not Available Not Available Not Available Omnitrope 5.8 mg subcutaneou s solution MIX 1.14 ML SALINE INTO POWDER. INJECT 1/4 ML (25 UNITS) SUBCUTANE OUSLY DAILY DIRECTED. STORE IN [place] 04/08 completed Not Available Not Available Not Available BD Eclipse Luer-Jermaine 25 gauge x 1 1/2 needle USE 1 TO INJECT TESTOSTER ONE 04/08 completed Not Available Not Available Not Available guanfacine ER 1 mg tablet,exte nded release 24 hr TAKE 1 TABLET BY MOUTH ONCE DAILY 04/08 completed Not Available Not Available Not Available Vitals Date Recorded Body weight Body mass index (BMI) Body height Body temperature Provider Name and Address Organization Details Last Updated DateTime 02/01/2023 92506.03 g 30.7 kg/m2 162.56 cm 97.7 [degF] Lesly Amaro [employer] [place] 02/01/2023 16:36:39 Date Recorded Body height Body mass index (BMI) Body weight Systolic blood pressure Diastolic blood pressure Provider Name and Address Organization Details Last Updated DateTime 04/08/2024 162.56 cm 35.5 kg/m2 60544.62 g 122 mm[Hg] 78 mm[Hg] Shu Jf [employer] IV 11:30:06 Social History Question Answer Notes LastModified by Organizat ion Details LastModified Time Tobacco Smoking Status Former Smoker Lesly Amaro [facility] [employer] [facility] 02/01/2023 16:41:13 What Is Your Level Of Alcohol Consumption? None Information not available 02/01/2023 Are You Blind Or Do You Have Difficulty Seeing? No [email or web address] Information not available 02/01/2023 Are You Currently Employed? Yes Information not available 04/08/2024 Are You Deaf Or Do You Have Serious Difficulty Hearing? No [email or web address] Information not available 02/01/2023 What Type Of Diet Are You Following? REGULAR [email or web address] Information not available 02/01/2023 Do You Or Have You Ever Used E-cigarettes Or Vape? 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 1-5yearssincel eric [email or web address] Information not available 02/01/2023 How Many Children Do You Have? 0 Information not available 04/08/2024 Are There Any Occupational Health Risks Where You Work? No [email or web address] Information not available 04/08/2024 What Is Your Relationship Status? Since 2008 And He Writes Science [employer] Information not available 04/08/2024 Are You Sexually Active? Yes [email or web address] Information not available 02/01/2023 Do You Or Have You Ever Used Smokeless Tobacco? Never Used Smokeless Tobacco [email or web address] Information not available 02/01/2023 How Much Tobacco Do You Smoke? No [email or web address] Information not available 04/08/2024 Do You Use Any Illicit Or Recreational Drugs? No [email or web address] Information not available 02/01/2023 Do You Or Have You Ever Used Any Other Forms Of Tobacco Or Nicotine? Yes Information not available 02/01/2023 Sex: Unknown Functional Status Question Answer Note LastModified by Organizat ion Details LastModified Time What is your exercise level? Occasional [email or web address] Information not available 04/08/2024 Mental Status None recorded. Family History Relationship Description Onset Age of this Age Resolved Age Notes LastModified by Organization Details LastModified Time Maternal Grandmother Malignant tumor of breast [email or web address] Not available 2022 16:38:27 Maternal Grandmother Diabetes mellitus [email or web address] Not available 2022 16:38:50 Maternal Grandfather Diabetes mellitus [email or web address] Not available 2022 16:38:50 Paternal Grandfather Diabetes mellitus [email or web address] Not available 2022 16:38:50 Paternal Grandmother Diabetes mellitus [email or web address] Not available 2022 16:38:50 Medical History Condition Response ADD/ADHD Y Hypothyroidism Y Gynecological History Statement/Question Response Flow Moderate Date of last HPV 05/31/2021 Date of LMP 03/02/2024 Duration of Flow (days) 3-5 Most Recent Mammogram 08/24/2023 Current Control Method None Age at Menarche 11 Date of Last Colonoscopy Most Recent Bone Density Frequency of Cycle (Q days) 30 Date of Last Pap Smear 05/31/2021 Obstetrics History GPAL:G 0 P 0 0 0 0 Past Encounters Encounter ID Performer Location Encounter Start Date Encounter Closed Date Diagnosis/Indication Diagnosis SNOMED-CT Code Diagnosis ICD10 Code Diagnosis Note [id number] REMY PRADO DO [facility] [address] [place] [address] 02/01/2023 16:13:41 02/02/2023 15:18:23 Gynecologic examination 04968444 Z01.419 38 y.o. here for annual exam. Here to establish care before embryo transfer with Vios- Pap up to date from 2021 , discussed natural course of HPV infection, ASCCP guidelines . Plan to repeat cotesting in- Contracept marianela counseling : Discussed options including OCPs, NuvaRing, Nexplanon, hormonal and copper IUDs. Discussed risks, benefits, and side effects of each option, including risk of VTE with hormonal contracept ion and uterine perforatio n with IUD.- Routine labs done with PCP- Mammo last year WNL, discussed option for yearly or q2 yr screening in 40s based on different guideline recommenda tions, pt without family hx, would like to proceed with q2yr screening, repeat next year- Depression screen NEG- BMI counseling , diet and exercise reviewed- RTO for annual or PRN Depression screening 171 414498 Z13.31 [id number] Bryon Leblanc MD [facility] [address] [place] [address] 04/08/2024 11:24:54 04/22/2024 12:17:08 Gynecologic examination 41294388 Z01.419 38 y.o. here for annual exam. Here to establish care before embryo transfer with Vios- Pap up to date from 2021 , discussed natural course of HPV infection, ASCCP guidelines . Plan to repeat cotesting in- Contracept marianela counseling : Discussed options including OCPs, NuvaRing, Nexplanon, hormonal and copper IUDs. Discussed risks, benefits, and side effects of each option, including risk of VTE with hormonal contracept ion and uterine perforatio n with IUD.- Routine labs done with PCP- Mammo last year WNL, discussed option for yearly or q2 yr screening in 40s based on different guideline recommenda tions, pt without family hx, would like to proceed with q2yr screening, repeat next year- Depression screen NEG- BMI counseling , diet and exercise reviewed- RTO for annual or PRN Screening for malignant neoplasm of cervix 265241082 Z12.4 Screening for malignant neoplasm of breast 126267854 Z12.31 Depression screening 171 781384 Z13.31 refer to intake screening Health Concerns Section Related Observation LastModified by Organization Detai ls LastModified Time None Recorded Concern Status LastModified by Organization Details LastModified Time None Recorded Advance Directives Directive None Recorded Payers Encounter Date Sequence Insurance Name Policy Number Policy Davis Covered Member ID Davis Member ID Guarantor Name 02/01/2023 1 [facility] (PPO) [id number] Kathleen Fuesting [id number] Kathleen Fuesting 04/08/2024 1 [facility] [id number] Kathleen Fuesting [id number] Kathleen Fuesting Notes Date Note Type Note Provider Name and Address Organization Details Recorded Time 02/01/2023 text/html Pt here to establish care prior to IVF transfer in a month for OB care REMY PRADO DO [address] [facility], [place], [address], [facility] - [employer] 02/01/2023 17:51:41 04/08/2024 text/html Annual GYNReport ed bypatient.History:n o gynecologic complaints Menstrual cycle:Normal menses Urinary symptoms:No hematuria; No incontinence Vulva:No genital lesion Vagina:Normal vaginal discharge Breast:No breast pain; No breast lump; No nipple discharge Current Contraception:Pt. is planning on getting within the year. Pt. is doing IVF. Sexual complaints:No sexual complaints; No pain during intercourse; Normal libido Menopausal Symptoms:No menopausal symptoms; Normal vaginal lubrication Psychological symptoms:No depression; No anxiety; No PMDD The patient verbally consented to documentation via virtual scribe for this encounter. Kathleen is a 39-year-old female who presents today for her annual exam. She underwent Pap smear in 2021, HPV was negative at that time. She is sexually active and denies any problems or discomfort with intercourse. She underwent laparoscopic fibroids 5 excision and had large portion of tube removed in the past. She has a history of stage 1 endometriosis. She is doing IVF. Bryon Leblanc MD [address] [facility], [place], [address], [facility] 04/21/2024 17:39:18 OBGyn Episode No OBEpisode recorded.
--- OUTSIDE RECORDS SUMMARY | 2024-09-13 12:38 | XMS_ITS | Clinical Summary ---
Author Organization [facility] Administrative Offices Address [address] [place] [address] Care Team Providers Care Commercial Artist Lettering Name Role Phone Wilma Randall MD Primary Care Provider + Allergies Active Allergy Reactions Criticality Noted Date Comments Cigarette Smoke Shortness of Breath/Wheezing High 08/16/2023 Cigarette and Marijuana smoke causes airway constriction Perfume Shortness of Breath/Wheezing High 08/16/2023 Medications levothyroxine 75 mcg tablet Take 75 mcg by mouth daily in the morning. TAKE 1 TABLET BY MOUTH DAILY IN THE MORNING Active dextroamphetami ne-amphetamine (ADDERALL) 20 mg tablet Take 20 mg by mouth daily. TAKE 1 TABLET BY MOUTH ONCE DAILY Active oxyCODONE (ROXICODONE) 5 mg tabletIndicatio ns:Post-op pain Take 1 Tablet (5 mg) by mouth every 4 hours as needed for Pain. Max Daily Amount: 6 tablets 10 Tablet 09/21/2023 11:53 AM CDT 09/21/2023 Active Active Problems No known active problems Encounters Date Type Department Care Team Description 08/07/2024 External Device Data [facility] ABSTRACTION Provider, Abstract 07/27/2024 External Device Data [facility] ABSTRACTION Provider, Abstract 07/26/2024 External Device Data [facility] ABSTRACTION Provider, Abstract 07/24/2024 External Device Data [facility] ABSTRACTION Provider, Abstract 07/10/2024 External Device Data [facility] ABSTRACTION Provider, Abstract from Last 3 Months Social History Tobacco Use Types Packs/Day Years Used Date Smoking Tobacco: Former Cigarettes Smokeless Tobacco: Never Tobacco Cessation:Counseling Given: Not Answered Comments:Quit smoking 2017 Alcohol Use Standard Drinks/Week Comments Not Currently 0 (1 standard drink = 0.6 oz pur e alcohol) Feeling Safe Answer Date Recorded Are you in a relationship wi th someone who hurts you emotionally and/or physically? 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 Gender Identity Not on file Sexual Orientation Not on file Last Filed Vital Signs Vital Sign Reading Time Taken Comments Blood Pressure 110/80 10/05/2023 12:16 PM CDT Pulse 100 09/21/2023 11:29 AM CDT Temperature 36.6 C (97.9 F) 09/21/2023 11:29 AM CDT Respiratory Rate 18 09/21/2023 11:29 AM CDT Oxygen Saturation 99% 09/21/2023 11:29 AM CDT Inhaled Oxygen Concentration - - Weight 87.1 kg (192 lb) 10/05/2023 12:16 PM CDT Height 162.6 cm (5' 4 ) 10/05/2023 12:16 PM CDT Body Mass Index 32.96 10/05/2023 12:16 PM CDT Plan of Treatment Health Maintenance Due Date Last Done Comments Pre-Diabetes and Diabetes Screening 1985 DTAP/TDAP/TD VACCINES (1 - Tdap) 2002 HEPATITIS B VACCINES (1 of 3 - 19+ 3-dose series) 2002 HPV/Cotest (21-29) 01/17/2004 CERVICAL CANCER SCREENING 2013 HPV/Cotest (30-65) 2013 PAP SMEAR 2013 BREAST CANCER SCREENING 2023 10/26/2020 INFLUENZA VACCINE (#1) 2023 2, 04/21/2021, 01/23/2019 HPV VACCINES Aged Out No longer eligi ble based on patient's age to complete this topic Medical Devices Implanted Type Area Edge Bander Operator Device Identifier Shelf Expiration Date Model / Serial / Lot Barrier Interceed Adh 3x4in [id number] - [id number] Implanted:Qt y: 1 on 09/21/2023 by Malick Angeles MD at [facility] Adhesion Barrier N/A: Pelvis [employer] [id number] 10/20/2027 [id number] / / [id number] Insurance [facility] [id number] RX [employer] Member Subscriber Plan / Payer (Ef fective 2023-Present) Name:Kathleen Bliss Ileana Relation to Subscriber:Not on file Name:Kathleen Bliss Subscriber ID:Not on file Date of :1985 Payer ID:Not on file Type:RX Commercial Address: [address] Advance Directives For more information, please contact: [phone] * Full Code (Latest Code Status on File) Date Activated Date Inactivated Comments 09/21/2023 6:16 AM 09/21/2023 1:57 PM Care Teams Commercial Artist Lettering Relationship Specialty Start Date End Date Wilma Randall MD [address] [place] [address] PCP - General Family Practice 08/22/23
== END 2024-09-13 12:33 | disposition home or self-care (01) ==
PROVIDERS: PCP Family Medicine; Visit Provider Nurse Practitioner Family
DX: E04.1 Nontoxic single thyroid nodule (principal)
CPT/HCPCS: 10005; 88172; 88173; 88305

== ENCOUNTER 2024-10-06 18:36 | Emergency (ER) | payer OTHER, SELFPAY ==
--- NOTE | ~2024-10-06 | XR_ITS ---
CHEST RADIOGRAPH, PA AND LATERAL CLINICAL HISTORY: cp . COMPARISON: 10/17/2023 TECHNIQUE: PA and lateral views of the chest. FINDINGS The cardiomediastinal silhouette is unremarkable. The lungs are clear. IMPRESSION: No focal infiltrate or effusion. Reviewed, dictated and finalized at location A.
--- OUTSIDE RECORDS SUMMARY | 2024-10-06 18:38 | XMS_ITS | Encounter Summary ---
[facility] Address 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
--- OUTSIDE RECORDS SUMMARY | 2024-10-06 18:38 | XMS_ITS | Clinical Summary ---
Author Organization [facility] Address [address] [place] [address] Care Team Providers Care Results Technician Name Role Phone Unavailable Primary Care Provider Unavailabl e Source Comments [facility],non-owned Affiliates and Associated Physician Practices is amultiple site organization consisting of ambulatory clinics and hospital sitesin [place], [place], [place] and [place]. This disclosure is being madepursuant to the Care Everywhere program and may not contain all information available regarding this patient. Last updated 18.[facility] [employer] Social History Tobacco Use Types Packs/Day Years [...] - 19+ 3-dose series) 2002 COVID-19 VACCINE (3 - season) 2024 10/27/2020, 10/06/2020 DEPRESSION SCREENING [...]
--- OUTSIDE RECORDS SUMMARY | 2024-10-06 18:38 | XMS_ITS | Data Portability ---
Author Organization [facility] , [facility] Address [address] [place] [address] Assessment No assessment recorded. Plan of Treatment Reminders Order Date Submit Date Provider Last Modified By Organization Details Last Modified Time Details Appointments None recorded. Lab HPV E6+E7 mRNA, qualitative PCR, cervix 2023 [facility], [address] [place], [address], 4 16:06:09 pap, LB 2023 024 [facility] [facility], [address], [place], [address], 4 10:54:15 Referral None recorded. Procedures None recorded. Surgeries None recorded. Imaging MAMMO, screening, digital, bilateral 2023 024 [email or web address] Not available 16:03:13 Medication Orders None recorded. Patient TargetsNo targets recorded. Patient Instructions Encounter Date Encounter Id Patient Instructions Last Modified By Organization Details Last Modified Time 02/01/2023 [id number] Patient Health Questionnaire-9* [email or web address] Not available 02/06/2023 16:27:27 A healthy lifestyle: care instructions Not available 02/01/2023 17:51:21 substance use disorder: care instructions Not available 02/01/2023 17:51:21 tobacco cessation Not availab le 02/01/2023 17:51:21 Following the [employer] Food Guide: Care Instructions Not available 02/01/2023 17:51:21 exercise program : getting started Not available 02/01/2023 17:51:21 04/08/2024 [id number] body mass index: care instructions Not available 04/08/2024 12:15:15 mammogram: about this test Not available 04/08/2024 12:15:15 Reason for Referral None Reported. Results Created Date Observation Date Name Description Value Unit Range Abnormal Flag Note LastModifiedBy Organization Detail LastModifiedTime 04/15/2004/15/2024 THINP REP TIS PAP clinical information: normal None given Not Available [address], [address], 04/15/2024 10:54:15 04/15/2004/15/2024 THINP REP TIS PAP LMP: normal NONE GIVEN Not Available [address], [address], 04/15/2024 10:54:15 04/15/2004/15/2024 THINP REP TIS PAP prev. Pap: normal NONE GIVEN Not Available [address], [address], 04/15/2024 10:54:15 04/15/2004/15/2024 THINP REP TIS PAP prev. BX: normal NONE GIVEN Not Available [address], [address], 04/15/2024 10:54:15 04/15/2004/15/2024 THINP REP TIS PAP source: normal None given Not Available [address], [address], 04/15/2024 10:54:15 04/15/2004/15/2024 THINP REP TIS PAP statement of adequacy: normal Satis facto ry for evalu ation . Endoc ervic al/tr ansfo rmati on zone compo nent prese nt. Age and/o r menst rual statu s not provi ded Not Available [address] [place], [address], 04/15/2024 10:54:15 04/15/20 24 04/15/2024 THINP REP TIS PAP interpretati on/result: Cytol ogy Resul ts: Negat marianela for intra epith elial lesio n or malig roselia . React marianela cellu lar hunt es assoc iated with repai r Not Available [address] [address] [place], [address], 04/15/2024 10:54:15 04/15/20 24 04/15/2024 THINP REP TIS PAP comment: normal This Pap test has been evalu ated with compu ter jeffery christie techn ology . HYPER KERAT OSIS PRESE NT Not Available [address] [address] [place], [address], 04/15/2024 10:54:15 04/15/20 24 04/15/2024 THINP REP TIS PAP cytotechnolo gist: normal ABC, CT( CP) CT scree lucia locat ion: [address] [address] [place] [address] Not Available [address] [address] [place], [address], 04/15/2024 10:54:15 04/15/20 24 04/15/2024 THINP REP TIS PAP pathologist: normal Silvana trevino M.D., Board Certi fied in Anato jg Patho logy and Cytop athol ogy. Phone : [phone] (elec troni c signa ture) Not Available [address] [address] [place], [address], 04/15/2024 10:54:15 04/15/20 24 04/15/2024 THINP REP [...] CLIEN T SERVI BREA. PHONE NUMBE R: [phone] Not Available [employer] [facility] [address] [place], [address], 04/15/2024 10:54:15 04/08/20 24 04/10/2024 HPV HIGH [...] l cervi juany cytol ogy. Not Available [address], [address], 04/10/2024 16:06:09 Result Notes None recorded. Procedures Surgical History Date Name Laterality Status Provider Name and Address Organization Details Recorded Time 09/04/19 24 laparoscopy completed Bryon Leblanc MD [address] [place] [address], [phone], [facility] 04/08/2024 12:07:12 08/24/19 24 Most Recent Mammogram completed Srinivas Benson [place] - [facility] 03/26/2024 11:10:28 05/31/19 22 Date of Last Pap Smear completed REMY PRADO DO [address] [place] [address], [phone], [facility] 02/01/2023 17:44:46 Sterilization completed Bryon Leblanc MD [address] [place], [address], [facility] 04/08/2024 12:05:30 Imaging Results None recorded. Procedure Notes None recorded. Medical Equipment None Reported. Allergies Allergen ID Allergen Name Allergen Category Reaction Reaction Severity Criticality Documentation Date Start Date Code Code System Note Provider Name and Address Organization Details Recorded Time 161281 cigarette smoke environme nt Not available Not available Not available 04/08/2024 77959 UNK Shumaik Rhoades null, [facility] 4 11:31:32 144652 marijuana (cannabis ) medicatio n Not available Not available Not available 04/08/2024 93515 UNK Shu Rhodaes null, [place] - [facility] 11:31:48 752510 perfume environme nt Not available Not available Not available 04/08/2024 91352 UNK Shu Rhoades null, [place] - [facility] 11:32:10 700171 Levaquin medicatio n Not available Not available Not available 04/08/2024 40834 2 RxNorm Shu Rhoades null, [facility] 4 11:32:57 Medications Name Sig Start Date Stop Date [...] Address Organization Details Last Updated DateTime 02/01/2023 43996.03 g 30.7 kg/m2 162.56 cm 97.7 [degF] Lesly Amaro [facility] 02/01/2023 16:36:39 Date Recorded Body height Body mass index (BMI) Body weight Systolic blood pressure Diastolic blood pressure Provider Name and Address Organization Details Last Updated DateTime 04/08/2024 162.56 cm 35.5 kg/m2 71150.62 g 122 mm[Hg] 78 mm[Hg] Shu Rhoades [place] [facility] 11:30:06 Social History Question Answer Notes LastModified by Organizat ion Details LastModified Time Tobacco Smoking Status Former Smoker Lesly Amaro [facility], [facility] 02/01/2023 16:41:13 Are You Blind Or Do You Have Difficulty Seeing? No [email or web address] Information not available 02/01/2023 Are You Deaf Or Do You Have Serious Difficulty Hearing? No Information not available 02/01/2023 What Type Of Diet Are You Following? REGULAR [email or web address] Information not available 02/01/2023 When Did You Quit Smoking? 1-5yearssin celastcichristopher ette Information not available 02/01/2023 How Many Children Do You Have? 0 Information not available 04/08/2024 Are There Any Occupational Health Risks Where You Work? No [email or web address] Information not available 04/08/2024 What Is Your Relationship Status? 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 Yes [email or web address] Information not available 02/01/2023 How Much Tobacco Do You Smoke? No [email or web address] Information not available 04/08/2024 Sex: Unknown Functional Status Question Answer Note LastModified by Organizat ion Details LastModified Time Do you use any illicit or recreational drugs? No [email or web address] Information not available 02/01/2023 Do you or have you ever used any other forms of tobacco or nicotine? Yes Information not available 02/01/2023 What is your level of alcohol consumption? None [email or web address] Information not available 02/01/2023 Do you or have you ever used smokeless tobacco? Never used smokeless tobacco Information not available 02/01/2023 Are you currently employed? 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 Former user of electronic cigarettes [email or web address] Information not available 02/01/2023 What is your exercise level? Occasional [email or web address] Information not available 04/08/2024 Mental Status None recorded. Family History Relationship Description Onset Age of this Age Resolved Age Notes LastModified by Organization Details LastModified Time Maternal Grandmother Malignant tumor of breast [email or web address] Not available 2022 16:38:27 Maternal Grandmother Diabetes mellitus [email or web address] Not available 2022 16:38:50 Maternal Grandfather Diabetes mellitus [email or web address] Not available 2022 16:38:50 Paternal Grandfather Diabetes mellitus Not available 2022 16:38:50 Paternal Grandmother Diabetes mellitus Not available 2022 16:38:50 Medical History Condition Response Hypothyroidism Y ADD/ADHD Y Gynecological History Statement/Question Response Flow Moderate [...] SNOMED-CT Code Diagnosis ICD10 Code Diagnosis Note [id number] Bryon Leblanc MD [facility] [address] [place] [address] 02/01/2023 16:13:41 02/02/2023 15:18:23 Gynecologic examination 89457139 Z01.419 38 y.o. here for annual exam. [...] for annual or PRN Depression screening 171 817732 Z13.31 [id number] Bryon Leblanc MD [facility] h [address] [place] [address] 04/08/2024 11:24:54 04/22/2024 12:17:08 Gynecologic examination 67246782 Z01.419 38 y.o. here for annual exam. [...] PRN Screening for malignant neoplasm of cervix 078914786 Z12.4 Screening for malignant neoplasm of breast 522222142 Z12.31 Depression screening 171 047289 Z13.31 refer to intake screening Health Concerns Section Related Observation LastModified by Organization Detai ls LastModified Time None Recorded Concern Status LastModified by Organization Details LastModified Time None Recorded Advance Directives Directive None Recorded Payers Insurance Date Sequence Insurance Name Policy Number Policy Davis Covered Member ID Davis Member ID Guarantor Name 06/13/2024 1 [place] [id number] Kathleen Fuesting [id number] Kathleen Fuesting 06/13/2024 1 [facility] [id number] Kathleen Fuesting [id number] Kathleen Fuesting Notes Date Note Type Note Provider Name and Address Organization Details Recorded Time 02/01/2023 text/html Pt here to establish care prior to IVF transfer in a month for OB care REMY PRADO DO [address] [facility], , [address], [facility] 02/01/2023 17:51:41 04/08/2024 text/html Annual GYNReport [...] She is doing IVF. Bryon Leblanc MD [facility] [facility], , [address], [facility] 04/21/2024 17:39:18 OBGyn Episode No OBEpisode recorded.
--- OUTSIDE RECORDS SUMMARY | 2024-10-06 18:38 | XMS_ITS | Clinical Summary ---
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 Gender Identity Not on file Sexual Orientation [...] this topic Medical Devices Implanted Type Area Pest Control Operator Device Identifier Shelf Expiration Date Model / Serial / Lot Barrier Interceed Adh 3x4in 4350 - [id number] Implanted:Qt y: 1 on 09/21/2023 by Malick Angeles MD at [facility] Adhesion Barrier N/A: Pelvis [employer] [id number] 10/20/2027 4350 / / [id number] Insurance RX [employer] RX Member Subscriber Plan / Payer (Ef fective 2023-Present) Name:Kathleen Bliss Relation to Subscriber:Not on file Name:Kathleen Bliss Subscriber ID:Not on file Date of :1985 Payer ID:Not on file Type:RX Commercial Address: [address] Advance Directives For more information, please contact: [phone] * Full Code (Latest Code Status on File) Date Activated Date Inactivated Comments 09/21/2023 6:16 AM 09/21/2023 1:57 PM Care Teams Mixer Attendant Relationship Specialty Start Date End Date Wilma Randall MD [address] [place] [address] PCP - General Family Practice 08/22/23
--- OUTSIDE RECORDS SUMMARY | 2024-10-06 18:38 | XMS_ITS | Data Portability ---
Author Organization [place] [facility] [employer], Main Office Address [address] [place] [address] Assessment No assessment recorded. Plan of Treatment Reminders Order Date Submit Date Provider Last Modified By Organization Details Last Modified Time Details Appointments None recorded. Lab TSH, serum or plasma 024 024 [email or web address] [facility] ([facility]), [address] [place], [address], 4 10:11:41 TSH, serum or plasma 023 023 [email or web address] Not available 3 08:58:38 T4, free, serum 023 023 [email or web address] Not available 3 08:58:39 Referral None recorded. Procedures None recorded. Surgeries None recorded. Imaging None recorded. Medication Orders dextroamp hetamine- amphetami ne ER 30 mg 24hr capsule,e xtend release 023 023 [facility] [address]27, [address] [place], [address], 3 17:16:59 Patient TargetsNo targets recorded. Patient InstructionsNo instructions recorded. Reason for Referral None Reported. Results Created Date Observation Date Name Description Value Unit Range Abnormal Flag Note LastModifiedBy Organization Detail LastModifiedTime 06/27/19 24 06/28/2023 MEASL ES, MUMPS , AND RUBEL LA (MMR) AB (IGG) PANEL , IMMUN E STATU S measles Ab (IgG), immune status 112.00 AU/mL normal AU/mL Inter preta tion ----- ----- ----- ---- <13.5 0 Not consi stent with immun ity 13.50 -16.4 9 Equiv ocal >16.4 9 Consi stent with immun ity The prese nce of measl es IgG sugge sts immun izati on or past or curre nt infec tion with measl es virus . For addit ional lisar sal matamoros refer to http: //[facility] isma Jha stDia gnost ics.c om/fa q/FAQ 162 (This link is being provi ded for infor franklin rodriguez/ educivette trevino purpo ses only. ) Not Available [employer] [address], [address], 06/28/2023 13:35:46 06/27/19 24 06/28/2023 MEASL ES, MUMPS , AND RUBEL LA (MMR) AB (IGG) PANEL , IMMUN E STATU S mumps virus Ab (IgG), immune status 292.00 AU/mL normal AU/mL Inter preta tion ----- -- ----- ----- ----- - <9.00 Not consi stent with immun ity 9.00- 10.99 Equiv ocal >10.9 9 Consi stent with immun ity The prese nce of mumps IgG antib jerrica sugge sts immun izati on or past or curre nt infec tion with mumps virus . Not Available [employer] [facility] [id number] [place] [address], [address], 06/28/2023 13:35:46 06/27/19 24 06/28/2023 MEASL ES, MUMPS , AND RUBEL LA (MMR) AB (IGG) PANEL , IMMUN E STATU S rubella Ab (IgG), immune status 2.38 index normal Index Inter preta tion ----- ----- ----- ---- <0.90 Not consi stent with immun ity 0.90- 0.99 Equiv ocal > or = 1.00 Consi stent with immun ity The prese nce of rubel la IgG antib jerrica sugge sts immun izati on or past or curre nt infec tion with rubel la virus . Not Available [facility] [address], [place], [address], 06/28/2023 13:35:46 06/27/19 24 06/28/2023 HEPAT ITIS B SURFA CE ANTIB JERRICA QL hepatitis B surface antibody ql REACTI VE non-re active abnormal Not Available [facility] [address], [place], [address], 06/28/2023 13:35:47 06/27/19 24 06/28/2023 VARIC JUANITA ZOSTE R VIRUS ANTIB JERRICA (IGG) varicella zoster virus antibody (IgG) 1412.0 0 index normal Index Inter preta tion ----- ---- ----- ----- ----- ----- -- <135. 00 Negat marianela - Antib jerrica not detec christie 135.0 0 - 164.9 9 Equiv ocal > or = 165.0 0 Posit marianela - Antib jerrica detec christie A posit marianela resul t indic ates that the patie nt has antib jerrica to VZV but does not diffe renti ate betwe en an activ e or past infec tion. The clini juany diagn osis must be inter prete d in conju nctio n with the clini juany signs and sympt oms of the patie nt. This assay relia marina measu res immun ity due to previ ous infec tion but may not be sensi tive enoug h to detec t antib odies induc ed by vacci natio n. Thus, a negat marianela resul t in a vacci nated indiv idual does not neces saril y indic ate susce ptibi lity to VZV infec tion. A more sensi tive test for vacci natio n-ind uced immun ity is Varic juanita Zoste r Virus Antib jerrica Immun ity Scree n, ACIF. Not Available [facility] [address] [place], [address], 06/28/2023 13:35:48 06/27/19 24 06/28/2023 T4, FREE T4, free 1.5 NG/dL 0.8-1. 8 normal Not Available [facility] [address] [place], [address], 06/28/2023 13:35:49 06/27/19 24 06/28/2023 TSH TSH 1.72 mIU/L normal Refer ence Range > or = 20 Years 0.40- 4.50 Pregn dc Range s First trime ster 0.26- 2.66 Secon d trime ster 0.55- 2.73 Third trime ster 0.43- 2.91 Not Available [facility] [address] [place], [address], 06/28/2023 13:35:50 12/05/19 24 12/07/2023 TSH TSH 2.480 uIU/m L 0.450- 4.500 Not Available [facility] ([facility]) [address] [facility], [place], [address], 12/07/2023 10:37:38 07/08/19 23 07/07/2022 MAMMO , scree lucia, digit al, bilat eral No observ ation record ed. [id number] [facility] [address], [place], [address], 07/20/2022 20:40:31 11/04/19 23 11/02/2022 US, trans vagin al No observ ation record ed. [email or web address] [address], [address], 09/24/2023 12:18:39 10/05/19 24 10/05/2023 MAMMO , scree lucia, digit al, bilat eral No observ ation record ed. [email or web address] [address] [place], [address], 11/17/2023 15:31:23 10/17/19 24 10/17/2023 XR, chest , 2 view No observ ation record ed. [email or web address] [facility] [address] [facility] [address], [place], [address], 11/09/2023 13:34:43 08/10/19 25 08/08/2024 imagi ng/di agnos tic resul t No observ ation record ed. [facility] [address], [place], [address], 08/09/2024 18:09:28 Result Notes None recorded. 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 Procedures Surgical History Date Name Laterality Status Provider Name and Address Organization Details Recorded Time ligation of bilateral fallopian tubes completed Not Available [facility] 07/20/2022 20:38:31 biopsy of breast completed Not Available [facility] 07/20/2022 20:38:31 Imaging Results Imaging Date Name Status LastModified by Organization Details LastModified Time 07/07/2022 MAMMO, screening, digital, bilateral completed [id number] [facility] [address], [place], [address], 07/20/2022 20:40:31 11/02/2022 US, transvaginal completed [email or web address] [facility] [address], [place], [address], 09/24/2023 12:18:39 10/05/2023 MAMMO, screening, digital, bilateral completed [email or web address] [place] [address] [facility] [address], [place], [address], 11/17/2023 15:31:23 10/17/2023 XR, chest, 2 view completed [email or web address] [place] [address] [facility] [address], [place], [address], 11/09/2023 13:34:43 08/08/2024 imaging/diagnost ic result active [facility] [address], [place], [address], 08/09/2024 18:09:28 Procedure Notes None recorded. Medical Equipment None Reported. Allergies Allergen ID Allergen Name Allergen Category Reaction Reaction Severity Criticality Documentation Date Start Date Code Code System Note Provider Name and Address Organization Details Recorded Time 14909 Levaquin medicatio n other mild Not available 07/20/2022 41609 2 RxNorm ITP Not Available [facility] 20:40:27 Medications Name Sig Start Date Stop Date Status Note LastModified by Organization Details LastModified Time fed-ex nextmon- AM TO PT HM SIG MX DECLINED COUNSELIN G active Not Available Not Available No t Available mdr- future family APPROVED FOR $679.98 active Not Available Not Available No t Available fed-ex standard overnight -MON PT HM SIG REQ AH DECLINED COUNSELIN G active Not Available Not Available No t Available sharp container USE TO DISPOSE OF NEEDLES active Not Available Not Available No t Available medroxypro gesterone 10 mg tablet TAKE 1 TABLET BY MOUTH ONCE DAILY DIRECTED active Not Available Not Available No t Available bupropion HCl SR 150 mg tablet,12 hr sustained- release Take 1 tablet twice a day by oral route. active Not Available Not Available No t Available doxycyclin e hyclate 100 mg capsule 04/03 completed Not Available Not Available Not Available azithromyc in 250 mg tablet TAKE 2 TABLETS (500 MG) BY ORAL ROUTE ONCE DAILY FOR 1 DAY THEN 1 TABLET (250 MG) BY ORAL ROUTE ONCE DAILY FOR 4 DAYS 09/10 completed Not Available Not Available Not Available ondansetro n HCl 4 mg tablet TAKE 1 TO 2 TABLETS BY MOUTH TWICE A DAY NEEDED FOR NAUSEA active Not Available Not Available No t Available dextroamph etamine-am phetamine 10 mg tablet Take 1 tablet every day by oral route as needed. 11/26 completed 2 tabs daily Not Available Not Available Not Available Pregnyl 10,000 unit intramuscu lar solution active Not Available Not Available Not Available sulfametho xazole 800 mg-trimeth oprim 160 mg tablet TAKE 1 TABLET BY MOUTH TWICE DAILY FOR 10 DAYS active Not Available Not Available No t Available bupropion HCl SR 100 mg tablet,12 hr sustained- release TAKE 1 TABLET BY MOUTH TWICE DAILY active Not Available Not Available No t Available levothyrox ine 75 mcg tablet Take 1 tablet by mouth once daily 2024 active Not Available Not Available Not Avai lable dextroamph etamine-am phetamine 30 mg tablet Take 1 tablet by mouth daily 2023 active Not Available Not Available Not Avai lable progestero ne 50 mg/mL intramuscu lar oil active Not Available Not Available Not Available amoxicilli n 875 mg tablet TAKE 1 TABLET BY MOUTH EVERY 12 HOURS FOR 7 DAYS active Not Available Not Available No t Available trazodone 100 mg tablet 1/2 to 1 tab po qhs prn insomnia 04/05 completed Not Available Not Available Not Available dexamethas one 1 mg tablet TAKE 1 TABLET BY MOUTH ONCE DAILY DIRECTED active Not Available Not Available No t Available Sure Comfort Insulin Syringe 1/2 mL 28 gauge x 1/2 USE DIRECTED [OMNITROP E MEDICATIO N] active Not Available Not Available No t Available levothyrox ine 50 mcg tablet TAKE 1 TABLET BY MOUTH ONCE DAILY active Not Available Not Available No t Available cephalexin 500 mg capsule TAKE 1 CAPSULE BY MOUTH TWICE DAILY FOR 7 DAYS 05/20 completed Not Available Not Available Not Available dextroamph etamine-am phetamine 20 mg tablet TAKE 1 TABLET BY MOUTH ONCE DAILY active Not Available Not Available No t Available misoprosto l 200 mcg tablet INSERT 1 TABLET VAGINALLY ONCE AT BEDTIME THE NIGHT BEFORE HYSTEROSC OPY active Not Available Not Available No t Available estradiol 2 mg tablet TAKE 1 TABLET BY MOUTH THREE TIMES DAILY DIRECTED active Not Available Not Available No t Available cephalexin 500 mg tablet Take 1 tablet twice a day by oral route for 7 days. 05/20 completed Not Available Not Available Not Available dextroamph etamine-am phetamine ER 10 mg 24hr capsule,ex tend release TAKE 1 CAPSULE BY MOUTH EVERY DAY 08/19 completed Not Available Not Available Not Available mupirocin 2 % topical ointment APPLY 1 APPLICATI ON TOPICALLY 2 TIMES PER DAY FOR 10 DAYS TO AFFECTED AREA active Not Available Not Available No t Available epinephrin e 0.3 mg/0.3 mL injection, auto-injec tor 0.3 ml sc x 1 prn allergic reaction, may repeat dose in 5 minutes if needed active Not Available Not Available No t Available testostero ne cypionate 200 mg/mL intramuscu lar oil INJECT 0.1 ML INTRAMUSC ULARLY ONCE A WEEK active Not Available Not Available No t Available letrozole 2.5 mg tablet TAKE 1 TABLET BY MOUTH ONCE DAILY DIRECTED active Not Available Not Available No t Available albuterol sulfate HFA 90 mcg/actuat ion aerosol inhaler INHALE 1 TO 2 PUFFS BY MOUTH EVERY 4 HOURS NEEDED FOR WHEEZING active Not Available Not Available No t Available dextroamph etamine-am phetamine ER 30 mg 24hr capsule,ex tend release TAKE 1 CAPSULE BY MOUTH ONCE DAILY 2023 active Not Available Not Available Not Avai lable BD Luer-Jermaine Syringe 3 mL 22 x 1 1/2 USE DIRECTED [OMNITROP E MEDICATIO N] active Not Available Not Available No t Available leuprolide 1 mg/0.2 mL subcutaneo us kit active Not Available Not Available Not Available oxycodone 5 mg tablet active Not Available Not Available Not Available Sure Comfort Insulin Syringe 1 mL 29 gauge x 1/2 USE DIRECTED [OMNITROP E MEDICATIO N] active Not Available Not Available No t Available Concerta 27 mg tablet,ext ended release Take 1 tablet every day by oral route. 10/16 completed Not Available Not Available Not Available dextroamph etamine-am phetamine ER 15 mg 24hr capsule,ex tend release Take by oral route for 30 days. 09/06 completed Not Available Not Available Not Available bupropion HCl SR 200 mg tablet,12 hr sustained- release Take 1 tablet by mouth twice daily 2022 active Not Available Not Available Not Avai lable ganirelix 250 mcg/0.5 mL subcutaneo us syringe active Not Available Not Available N ot Available Menopur 75 unit subcutaneo us solution active Not Available Not Available Not Available Follistim AQ 900 unit/1.08 mL subcutaneo us cartridge active Not Available Not Available No t Available aripiprazo le 2 mg tablet TAKE 1 TABLET BY MOUTH ONCE DAILY active Not Available Not Available No t Available Omnitrope 5.8 mg subcutaneo us solution MIX 1.14 ML SALINE INTO POWDER. INJECT 1/4 ML (25 UNITS) SUBCUTANE OUSLY DAILY DIRECTED. STORE [facility] [place] active Not Available Not Available No t Available BD Eclipse Luer-Jermaine 25 gauge x 1 1/2 needle USE 1 TO INJECT TESTOSTER ONE active Not Available Not Available No t Available guanfacine ER 1 mg tablet,ext ended release 24 hr TAKE 1 TABLET BY MOUTH ONCE DAILY active Not Available Not Available No t Available Flucelvax Quad (PF) 60 mcg (15 mcg x 4)/0.5 mL IM syringe TO BE ADMINISTE RED BY PHARMACIS T FOR IMMUNIZAT ION active Not Available Not Available No t Available Fluzone Quad (PF) 60 mcg (15 mcg x 4)/0.5 mL IM syringe PHARMACY ADMINISTE RED active Not Available Not Available No t Available Vitals Date Recorded Body mass index (BMI) Body height Oxygen saturation Oxygen saturation in Arterial blood by Pulse oximetry Heart rate Body temperature Body weight Systolic blood pressure Diastolic blood pressure Provider Name and Address Organization Details Last Updated DateTime 2 30.2 kg/m2 162.56 cm 100 % 100 % 106 /min 97.9 [degF] 34546.2 6 g 128 mm[Hg] 90 mm[Hg] Not Available [facility] 3 20:38:38 Date Recorded Body height Body mass index (BMI) Body weight Body temperature Oxygen saturation Oxygen saturation in Arterial blood by Pulse oximetry Heart rate Systolic blood pressure Diastolic blood pressure Provider Name and Address Organization Details Last Updated DateTime 3 162.56 cm 29 kg/m2 55920.1 1 g 97.2 [degF] 99 % 99 % 90 /min 118 mm[Hg] 68 mm[Hg] Roxane Burnett CMA [place] [facility] [facility] [employer] [employer] 3 12:30:34 Date Recorded Body height Body mass index (BMI) Body weight Body temperature Heart rate Oxygen saturation Oxygen saturation in Arterial blood by Pulse oximetry Systolic blood pressure Diastolic blood pressure Provider Name and Address Organization Details Last Updated DateTime 3 162.56 cm 30.7 kg/m2 43994.0 3 g 97.7 [degF] 99 /min 98 % 98 % 142 mm[Hg] 86 mm[Hg] Kiera Palomino RN [facility] [employer] 3 16:47:05 Date Recorded Body weight Body temperature Oxygen saturation Oxygen saturation in Arterial blood by Pulse oximetry Heart rate Systolic blood pressure Diastolic blood pressure Provider Name and Address Organization Details Last Updated DateTime 4 24316.2 5 g 97.6 [degF] 97 % 97 % 98 /min 136 mm[Hg] 90 mm[Hg] Kiera Palomino RN [facility] [employer] 4 16:38:56 Social History Question Answer Notes LastModified by [employer] Details LastModified Time Tobacco Smoking Status Former Smoker 1 ppw Kimberly Miguel Angel marie [facility] [employer] 11/10/2022 16:40:47 What Is Your Level Of Caffeine Consumption? Occasional [id number] Information not available 07/20/2022 How Much Tobacco Do You Chew? None [id number] Information not available 07/20/2022 What Type Of Diet Are You Following? REGULAR [id number] Information not available 07/20/2022 Which Illicit Or Recreational Drugs Have You Used? No [email or web address] Information not available 11/10/2022 Are There Any Guns Present In Your Home? No [email or web address] Information not available 11/10/2022 What Was The Date Of Your Most Recent Tobacco Screening? 04/05/2022 [email or web address] Information not available 11/10/2022 How Much Tobacco Do You Smoke? No [id number] Information not available 07/20/2022 Sex: Unknown Functional Status Question Answer Note LastModified by Organizat ion Details LastModified Time What is your level of alcohol consumption? Occasional [id number] Information not available 07/20/2022 Do you or have you ever used smokeless tobacco? Never used smokeless tobacco [id number] Information not available 07/20/2022 Do you or have you ever used e-cigarettes or vape? Current user of electronic cigarettes [email or web address] Information not available 11/10/2022 What is your exercise level? Moderate [id number] Information not available 07/20/2022 Mental Status None recorded. Family History Relationship Description Onset Age of this Age Resolved Age Notes LastModified by Organization Details LastModified Time Maternal Grandmother Malignant tumor of breast [id number] Not available 07/20/2022 20:38:31 Notes:diabetes dementia glau coma Medical History Condition Response BLINDNESS N RHEUMATIC FEVER N KIDNEY STONES N BLADDER PROBLEMS N MRSA N OTHER # 1 N POLIO N LUNG DISEASE/DISORDER N RADIATION / CHEMOTHERAPY N COPD N Other # 2 N BLOOD DISEASES N SURGERY N EAR OR HEARING PROBLEMS N MUMPS N FEMALE PROBLEMS / INFECTIONS N DEPRESSION (INCLUDING POST ) N BOWEL PROBLEMS N STROKE/TIA N THYROID DISEASE N ULCERS N BENIGN PROSTATIC HYPERPLASIA N MEASLES N CERVICALGIA N TB SKIN TEST N MYOCARDIAL INFARCTION N PARAPELGIA N OBESITY N GERD/NAUSEA N ANEURYSM N URINARY/BLADDER/KIDNEY PROBLEMS N CORONARY ARTERY DISEASE (CAD) N MENIERE'S DISEASE N ADDICTION CONCERNS N ENDOMETRIOSIS N USE OF BLOOD THINNERS N SKIN PROBLEMS N EMPHYSEMA N GASTROINTESTINAL DISORDER N MUSCLE,JOINT OR BONE PROBLEMS N GASTROINTESTINAL BLEEDING N BLOOD CLOTS N ASTHMA N CATARACTS N ERECTILE DYSFUNCTION N GI PROBLEMS N CHF N Low Testosterone N NEUROPATHY N INFERTILITY N AIDS/HIV N FRACTURES N CHEMOTHERAPY / RADIATION N VISION/EYE PROBLEMS N LIVER DISEASE N MALE HYPOGONADISM N HYPERTENSION N TOURETTE'S N ANXIETY DISORDER N BLOOD TRANSFUSION N ANEMIA/BLOOD DISORDER N CHRONIC EAR INFECTIONS N BRONCHITIS N TUBERCULOSIS N GLAUCOMA N FOOT PROBLEM N DIVERTICULITIS N SLEEP APNEA N CHICKENPOX N ALLERGIES/HAYFEVER N INFECTIOUS DISEASE N PROSTATE N HEART ARRHYTHMIA N INSOMNIA N HIGH CHOLESTEROL / HYPERLIPIDEMIA N EYE PROBLEMS N HYPERTHYROIDISM N EATING DISORDER N EDEMA N CHRONIC PAIN SYNDROME N CAROTID BLOCKAGE N CONSTIPATION N BACK / NECK PROBLEMS N HAVE YOU BEEN HOSPITALIZED OR SEEN IN [facility] IN THE PAST YEAR ? N ATHEROSCLEROSIS N BREAST PROBLEMS N DIALYSIS N ECZEMA N FIBROMYALGIA N OSTEOPOROSIS N ARTHRITIS N NO SIGNIFICANT PAST MEDICAL HISTORY N APPENDICITIS N DIABETES, TYPE N BAD TEETH N HEARTBURN / REFLUX N ADD/ADHD N AUTISM SPECTRUM DISORDER (ASD) N HEPATITIS / LIVER DISEASE N PULMONARY DISEASE N GOUT N SLEEP DISORDER N ALZHEIMER'S DISEASE N PAIN N DEMENTIA N HERPES N SEIZURES/EPILEPSY N HEADACHES/MIGRAINES N VASCULAR DISEASE N PACEMAKER N DIZZINESS N HEART DISEASE/HEART PROBLEMS N KIDNEY DISEASE N SCARLET FEVER N MULTIPLE SCLEROSIS N DEVELOPMENTAL OR BEHAVIORAL DISORDERS N MENTAL DISORDER/ILLNESS N CANCER: SPECIFY N CARDIAC ARRHYTHMIA N PNEUMONIA N ATRIAL FIBRILLATION N Gall Stones N PULMONARY EMBOLISM N AUTOIMMUNE DISEASE N Gynecological History Statement/Question Response How many live births 0 Current Control Method None Date of LMP Breast Problems no Obstetrics History GPAL:G 0 P 0 0 0 0 Immunizations Vaccine Type Date Status Note Provider Nam e and Address Organization Details Recorded Time Influenza, split virus, quadrivalent, preservative 1 completed Not Available [facility] 07/20/2022 20:40:20 SARS-COV-2 (COVID-19) vaccine, UNSPECIFIED 1 completed Not Available [facility] 07/20/2022 20:40:20 SARS-COV-2 (COVID-19) vaccine, UNSPECIFIED 1 completed Not Available [facility] 07/20/2022 20:40:20 Influenza, split virus, quadrivalent, preservative 9 completed Not Available [facility] 07/20/2022 20:40:20 Influenza, split virus, quadrivalent, PF 2 completed Not Available [facility] 07/20/2022 20:40:20 Past Encounters Encounter ID Performer Location Encounter Start Date Encounter Closed Date Diagnosis/Indication Diagnosis SNOMED-CT Code Diagnosis ICD10 Code Diagnosis Note [id number] Wilma Randall MD [facility] [place] [address] [employer] [address] [facility] [address] [facility] [address] 11/30/2020 00:00:00 12/11/2020 11:08:13 [id number] Wilma Randall MD [facility] [place] [address] [employer] [address] [facility] [address] [place] [address] 04/29/2021 00:00:00 05/20/2021 09:34:58 [id number] Wilma Randall MD [facility] [place] [address] [place] [address] 04/05/2022 00:00:00 04/19/2022 20:48:56 [id number] Wilma Randall MD [facility] [place] [address] [place] [address] 09/06/2022 12:22:10 09/06/2022 14:11:26 Undifferentiated attention deficit disorder 70546798 F90.8 stableno refill needed [id number] Wilma Randall MD [facility] [place] [address] [place] [address] 11/10/2022 16:40:28 11/10/2022 17:36:29 Hypothyroidism 32821895 E03.9 Undifferen tiated attention deficit disorder 29464547 F90.8 stablePt understand s this medication has risk for abuse/depe ndence and agrees to take it only as prescribed and to guard from loss/theft [id number] Pepito Martínez, MARIA LUZ-C [facility] [place] [address] [place] [address] 11/21/2023 10:03:01 11/21/2023 10:26:15 [id number] MARIA LUZ Carter-Raffi [facility] [place] [address] [place] [address] 12/05/2023 16:31:51 12/05/2023 17:03:59 Hypothyroidism 85942044 E03.9 would like to have labs redrawn because she does not feel her current dose is helping Health Concerns Section Related Observation LastModified by Organization Detai ls LastModified Time None Recorded Concern Status LastModified by Organization Details LastModified Time None Recorded Advance Directives Directive None Recorded Payers Encounter Date Sequence Insurance Name Policy Number Policy Davis Covered Member ID Davis Member ID Guarantor Name 09/06/2022 1 [place] [id number] Kathleen Fuesting [id number] Kathleen N Fuesting 11/10/2022 1 [place] [id number] Kathleen Fuesting [id number] Kathleen N Fuesting 11/21/2023 1 [facility]: (PPO) [id number] Kathleen Fuesting [id number] Kathleen N Fuesting 12/05/[address] [facility] [id number] Kathleen Fuesting [id number] Kathleen N Fuesting Notes Date Note Type Note Provider Name and Address Organization Details Recorded Time 09/06/2022 text/html doing hormone treatments-lupron, follistim, menapur, dexamethasone, levothyroxine for ivf. doing well on meds for ADHD, no selling/lending/sha ring, no heavy etoh, no illegal drug use. 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 Otherwise, does not want any changes to her adderall for focus/concentration . Wilma Randall MD [address], [place], [address], [employer] [place] 11/18/2022 13:55:13 12/05/2023 text/html Patient is a 38 year old female that presents to the office to discuss controlled substance policy. Patient reports she has not been taking her medication due to letting her body rest to the resistance of the medication . Patient reports feeling sluggish like her 75mcg Levothyroxine is not working. Patient would like labs rechecked. Patient denies chest pain and shortness of breath, nausea vomiting and diarrhea. MARY BETH Carter [address], [place], [address], [place] 12/05/2023 17:04:34 OBGyn Episode No OBEpisode recorded.
--- NOTE | 2024-10-06 18:40 | ECG_ITS ---
Test Date: 2024-10-06 18:50:32 Measurements Intervals [place] Rate: 112 P: 76 FL: 125 QRS: 73 QRSD: 78 T: 41 QT: 306 QTc: 418 Interpretive Statements SINUS TACHYCARDIA POSSIBLE LEFT ATRIAL ENLARGEMENT [-0.1mV P WAVE IN V1/V2] MODERATE ST DEPRESSION [0.05+ mV ST DEPRESSION] No previous ECG available for comparison Electronically Signed On 10-07-2024 10:43:03 CDT by Margarito Howard M.D.
--- NOTE | 2024-10-06 19:00 | ED_ITS ---
HPI - Chest Pain General Chief Complaint: Chest Pain Stated Complaint: medial CP, radiates to L. shoulder and jaw Time Seen by Provider: 10/06/24 21:48 Focused HPI: 39-year-old female presents to emergency department for left-sided chest, shoulder and neck pain. States her pain started this morning and has persisted throughout the day, however she does have chronic left shoulder issues. states pain is worse when she moves her shoulder forward. Denies injury or trauma. Denies numbness, tingling, shortness of breath, hemoptysis, recent long travel, recent surgeries or hospitalizations, lower extremity edema, history of VTE, abdominal pain, fever. Has had some cough and congestion. GENERAL: Well-appearing, well-nourished, and in no acute distress. HEAD: Normocephalic, atraumatic. CHEST: Clear to auscultation. No respiratory distress. HEART: Regular rate and rhythm. NEURO: Alert and oriented x3. Patient screened in triage and initial orders placed. Additional care and disposition to be based upon diagnostic testing and treatment. History of Present Illness HPI narrative: Agree with above triage note. Related Data Home Medications Medication Instructions Recorded Confirmed Last Taken Type B-complex with vitamin C 1 cap PO DAILY 08/05/24 08/05/24 Unknown History calcium carbonate (Calcium 600) 600 mg PO DAILY 08/05/24 08/05/24 Unknown History cholecalciferol (vitamin D3) 10 10 mcg PO DAILY 08/05/24 08/05/24 Unknown History mcg (400 unit) tablet coenzyme Q10 100 mg capsule 600 mg PO DAILY 08/05/24 08/05/24 Unknown History (CoQ-10) ferrous sulfate 325 mg (65 mg mg PO DAILY 08/05/24 08/05/24 Unknown History iron) capsule,extended release levothyroxine 75 mcg tablet mcg PO DAILY 08/05/24 08/05/24 Unknown History Allergies Allergy/AdvReac Type Severity Reaction Status Date / Time levofloxacin (From Levaquin) Allergy Other Verified 10/06/24 18:37 Review of Systems 2 Review of Systems: All systems reviewed & are unremarkable except as noted in HPI and below PMFSH Past Medical History Medical History ADHD Thyroid disorder Surgical History Surgical History History of tubal ligation Family History Family History Father Heart disease Hypertension Grandparent Breast cancer Heart disease Grandparent Heart disease Hypertension Diabetes mellitus Grandparent Alcoholism Diabetes mellitus Heart disease Hypertension Social History Social History Smoking status: Never smoker Substance use: never Do You Feel Safe in your Home?: Yes Lack of Transportation: No Lack of Food: Never True Current Housing: I Have Housing Concerned About Future Housing: No Difficulty Paying Gas/Electric Bills: No Difficulty Paying for Meds: No Currently Unemployed: No Difficulty w/ Childcare or Family Care: No Living arrangements: with family Gender identity (if verbalized by the patient): Female Agree to blood products: Yes Exam 2 Narrative: GENERAL: Well-appearing, well-nourished, and in no acute distress. HEAD: Normocephalic, atraumatic. EYES: EOMI. ENT: Nares clear, no rhinorrhea or epistaxis. Mucous membranes moist. NECK: Supple. CHEST: Clear to auscultation. No respiratory distress. HEART: Regular rate and rhythm. No murmur heard. Normal peripheral pulses. ABDOMEN: Soft, nontender, nondistended, normal active bowel sounds. EXTREMITIES: No tenderness to the left upper extremity or shoulder. Mild tenderness to left trapezius. Full active and passive range of motion of shoulder without difficulty. Radial pulse 2 +. Sensation intact. Negative Homans bilaterally SKIN: Warm, dry, no rash. NEURO: No focal deficits. Alert and oriented x3 Course Vital Signs Vital signs: Vital Signs Temperature 97.9 F 10/06/24 19:02 Pulse Rate 100 10/06/24 19:02 Respiratory Rate 16 10/06/24 19:02 Blood Pressure 137/92 H 10/06/24 19:02 Pulse Oximetry 98 10/06/24 19:02 Oxygen Delivery Room Air 10/06/24 19:02 Temperature 97.9 F 10/06/24 19:02 Pulse Rate 100 10/06/24 19:02 Respiratory Rate 16 10/06/24 19:02 Blood Pressure 137/92 H 10/06/24 19:02 Pulse Oximetry 98 10/06/24 19:02 Oxygen Delivery Room Air 10/06/24 19:02 MDM - Chest Pain MDM Narrative Medical decision making narrative: 39-year-old female presents emergency department for left-sided shoulder, chest and neck pain. See HPI for further history. Triage vitals with mildly elevated blood pressure, otherwise unremarkable. Exam is significant for the above. EKG shows sinus tachycardia, normal [place] interval, normal QRS duration, normal QTC, no ischemic changes. Troponin undetectable x2. Chest x-ray shows no acute cardiopulmonary findings. CBC and chemistries are unremarkable. Lipase is normal. Patient updated on results. She received Toradol with improvement. Presentation is consistent with MSK etiology, likely originating from chronic shoulder pain. Will prescribe a course of NSAIDs. Did consider PE however this seems less likely given no risk factors, no evidence of DVT on exam, not on estrogen. She did have mild tachycardia on arrival with that since resolved and otherwise has no abnormal vital signs. Advised follow-up with PCP and discussed strict ED return precautions. She is agreeable with the plan and verbalized understanding. Discharged in stable condition. Lab Data 10/06/24 18:59 10/06/24 18:58 Labs: Lab Results 10/06/24 10/06/24 10/06/24 Range/Units 18:58 18:59 22:00 WBC 10.9 H (4.5-10.0) K/mm3 RBC 5.15 (4.2-5.4) M/mm3 Hgb 14.3 (12.0-15.0) g/dL Hct 43.3 (37.0-47.0) % MCV 84.1 (80-100) fl MCH 27.8 (26-34) pg MCHC 33.0 (32-36) g/dl RDW 13.2 (11.5-14.5) % Plt Count 399 H (150-375) k/mm3 MPV 9.5 (7.4-10.4) fl Immature Gran % (Auto) 0.5 (0-0.5) % Neut % (Auto) 66.0 (45.5-73.1) % Lymph % (Auto) 26.7 (18.3-44.2) % [place] % (Auto) 5.3 (2.6-8.5) % Eos % (Auto) 1.1 (0-4.4) % Baso % (Auto) 0.4 (0.2-1.2) % Lymph # (Auto) 2.90 (0.9-3.2) K/mm3 [place] # (Auto) 0.6 (0.1-0.6) K/mm3 Eos # (Auto) 0.1 (0-0.3) K/mm3 Baso # (Auto) 0.0 (0.0-0.1) K/mm3 Abs Immat Gran (auto) 0.05 H (0.00-0.031) K/mm3 Absolute Neuts (auto) 7.2 H (1.3-6.7) K/mm3 Absolute Nucleated RBC 0.000 (0.0-0.012) K/mm3 Nucleated RBC % 0.0 (0.0-0.2) % PT 12.2 (11.1-14.7) Seconds INR 0.9 APTT 26.4 (22.3-36.8) Seconds Sodium 138 (137-145) mmol/L Potassium 4.0 (3.4-5.0) mmol/L Chloride 107 (98-107) mmol/L Carbon Dioxide 22 (22-30) mmol/L Anion Gap 9 (4-12) mmol/L BUN 12 (7-17) mg/dL Creatinine 0.95 (0.7-1.0) mg/dL Estim Creat Clear Calc 79 ml/min Estimated GFR > 60 (59 - ) Glucose 87 (65-110) mg/dL Calcium 9.1 (8.4-10.2) mg/dL Total Bilirubin 0.3 (0.2-1.3) mg/dL AST 28 (14-36) U/L ALT 21 (6-35) U/L Alkaline Phosphatase 89 (38-126) U/L Troponin I < 0.012 < 0.012 (0.000-0.034) ng/mL Total Protein 8.0 (6.3-8.2) g/dL Albumin 4.4 (3.5-5.1) g/dL Lipase 58 (23-300) U/L Discharge Plan Discharge Clinical Impression: Atypical chest pain Patient Disposition: Home Condition: Stable Instructions: Antibiotic Form, Chest Pain (ED) Additional Instructions: Please take ibuprofen as directed. Follow-up closely with her primary care provider. Return to the emergency department if you develop any new or worsening symptoms. Patient Language: Polish Prescriptions: New ibuprofen 800 mg tablet 800 mg PO TID PRN (Reason: pain) Qty: 20 0RF No Action levothyroxine 75 mcg tablet PO DAILY calcium carbonate [Calcium 600] 600 mg calcium (1,500 mg) tablet 600 mg PO DAILY cholecalciferol (vitamin D3) 10 mcg (400 unit) tablet 10 mcg PO DAILY B-complex with vitamin C Capsule 1 cap PO DAILY coenzyme Q10 [CoQ-10] 100 mg capsule 600 mg PO DAILY ferrous sulfate 325 mg (65 mg iron) capsule, extended release PO DAILY epinephrine [EpiPen 2-Santy] 0.3 mg/0.3 mL auto-injector 0.3 mg IM ONCE Qty: 2 0RF Rx Instructions: as a single dose; may repeat once Proair Digihaler 90 mcg/actuation aero powdr breath act w/sensor 2 inh inhalation Q4-6H PRN (Reason: shortness of breath or wheezing) Qty: 1 0RF Follow-up/Referrals: Ervin Cao MD [Primary Care Provider] - Quality HEART score for chest pain patients History: slightly suspicious ECG: normal Age: < or = to 45 years Risk factors: 1 or 2 risk factors Troponin: < or = to 1x normal limit Heart score: 1
[2024-10-06 19:02] VITALS: BP 137/92; PULSE 100; RESP 16; TEMP 36.6; O2SAT 98
[2024-10-06 19:09] LABS: Basophils Percent Auto 0.4 % (0.2-1.2); Eosinophils Absolute Auto 0.1 K/mm3 (0-0.3); Eosinophils Percent Auto 1.1 % (0-4.4); Hematocrit 43.3 % (37.0-47.0); Hemoglobin 14.3 g/dL (12.0-15.0); Immature Granulocyte Absolute 0.05 K/mm3 (0.00-0.031); Immature Granulocyte Percent A 0.5 % (0-0.5); Lymphocytes Percent Auto 26.7 % (18.3-44.2); Mean Corpuscular Hemoglobin 27.8 pg (26-34); Mean Corpuscular Volume 84.1 fl (80-100); Mean Platelet Volume 9.5 fl (7.4-10.4); Monocytes Absolute Auto 0.6 K/mm3 (0.1-0.6); Monocytes Percent Auto 5.3 % (2.6-8.5); Neutrophils Absolute Auto 7.2 K/mm3 (1.3-6.7); Platelet Count Result 399 k/mm3 (150-375); Red Blood Count 5.15 M/mm3 (4.2-5.4); Red Cell Distribution Width 13.2 % (11.5-14.5); White Blood Count 10.9 K/mm3 (4.5-10.0)
[2024-10-06 19:19] LABS: INR 0.9; Prothrombin Time 12.2 Seconds (11.1-14.7)
[2024-10-06 19:20] LABS: Partial Thromboplastin Time 26.4 Seconds (22.3-36.8)
[2024-10-06 19:25] LABS: Alanine Aminotransferase 21 U/L (6-35); Albumin Level 4.4 g/dL (3.5-5.1); Alkaline Phosphatase 89 U/L (38-126); Anion Gap 9 mmol/L (4-12); Aspartate Amino Transferase 28 U/L (14-36); Bilirubin,Total 0.3 mg/dL (0.2-1.3); Blood Urea Nitrogen 12 mg/dL (7-17); Calcium 9.1 mg/dL (8.4-10.2); Carbon Dioxide 22 mmol/L (22-30); Chloride 107 mmol/L (98-107); Estimated CRCL calculation 79 ml/min; Estimated Glomerular Filt Rate > 60; Glucose 87 mg/dL (65-110); Lipase 58 U/L (23-300); Sodium 138 mmol/L (137-145)
[2024-10-06 19:40] LABS: Troponin I < 0.012 ng/mL (0.000-0.034)
--- NOTE | 2024-10-06 21:51 | ECG_ITS ---
Test Date: 2024-10-06 21:55:03 Measurements Intervals [place] Rate: 79 P: 57 MA: 144 QRS: 47 QRSD: 81 T: 27 QT: 366 QTc: 420 Interpretive Statements SINUS RHYTHM POSSIBLE LEFT ATRIAL ENLARGEMENT [-0.1mV P-WAVE IN V1/V2] Compared to ECG 10/06/2024 18:50:32 Sinus tachycardia no longer present ST (T wave) deviation no longer present Electronically Signed On 10-07-2024 10:44:50 CDT by Margarito Howard M.D.
[2024-10-06 22:27] LABS: Troponin I < 0.012 ng/mL (0.000-0.034)
--- OUTSIDE RECORDS SUMMARY | 2024-10-06 22:28 | XMS_ITS | Clinical Summary ---
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 Gender Identity Not on file Sexual Orientation [...] this topic Medical Devices Implanted Type Area Fish Farm Manager Device Identifier Shelf Expiration Date Model / Serial / Lot Barrier Interceed Adh 3x4in [id number] - [id number] Implanted:Qt y: 1 on 09/21/2023 by Malick Angeles MD at [facility] Adhesion Barrier N/A: [place] [employer] [id number] 10/20/2027 4350 / / [id number] Insurance RX [employer] RX Member Subscriber Plan / Payer (Ef fective 2023-Present) Name:Kathleen Bliss Relation to Subscriber:Not on file Name:Kathleen Bliss Subscriber ID:Not on file Date of :1985 Payer ID:Not on file Type:RX Commercial Address: [address] Advance Directives For more information, please contact: [phone] * Full Code (Latest Code Status on File) Date Activated Date Inactivated Comments 09/21/2023 6:16 AM 09/21/2023 1:57 PM Care Teams Claim Review Medical Director Relationship Specialty Start Date End Date Wilma Randall MD [address] [place] [id number] PCP - General Family Practice 08/22/23
--- OUTSIDE RECORDS SUMMARY | 2024-10-06 22:28 | XMS_ITS | Encounter Summary ---
Author Organization [facility] Address 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
--- OUTSIDE RECORDS SUMMARY | 2024-10-06 22:28 | XMS_ITS | Clinical Summary ---
Author Organization [facility] Address [address] [place] [address] Care Team Providers Care Research Home Economist Name Role Phone Unavailable Primary Care Provider Unavailabl e Source Comments [facility],non-owned Affiliates and Associated Physician Practices is amultiple site organization consisting of ambulatory clinics and hospital sitesin [place], [place], [place] and [place]. This disclosure is being madepursuant to the Care Everywhere program and may not contain all information available regarding this patient. Last updated 18.[facility] [employer] Social History Tobacco Use Types Packs/Day Years [...]
[2024-10-06] MEDS: KETOROLAC 15 MG/ML VIAL (*BKC) IV PUSH (22:43)
--- NOTE | 2024-10-06 23:00 | PC.NURSE ---
Pt states medication to be effective.
[2024-10-06 23:20] VITALS: BP 135/80; PULSE 93; RESP 16; O2SAT 93
== END 2024-10-06 23:23 | disposition home or self-care (01) ==
PROVIDERS: Student in an Organized Health Care Education/Training Program; Emergency Provider Physician Assistant; PCP Family Medicine
DX: R07.89 Other chest pain (principal); F90.9 Attention-deficit hyperactivity disorder, unspecified type; E07.9 Disorder of thyroid, unspecified
CPT/HCPCS: 36415; 71046; 80053; 83690; 84484; 85025; 85610; 85730; 93005; 96374; 99284; J1885